=== PATIENT | male | born 1930 | race Caucasian/White ===

== ENCOUNTER 2018-12-15 15:45 | Emergency (ER) | payer MEDICARE, BC ==
--- NOTE | 2018-12-15 17:29 | EDM.PDOC ---
ED HPI GENERAL MEDICAL PROBLEM - General Chief Complaint: Respiratory Problem Stated Complaint: DOES NOT LIKE THE SIDE EFFECTS OF MEDS Time Seen by Provider: 12/15/18 16:29 Source of Information: Reports: Patient, RN Notes Reviewed History Limitations: Reports: No Limitations - History of Present Illness INITIAL COMMENTS - FREE TEXT/NARRATIVE: Patient is an 88-year-old male who comes to the ED for evaluation of some adverse side effects of medications that he was placed on. He states that he was recently diagnosed with pneumonia 2 or 3 days ago. He was subsequently placed on Levaquin 750 mg once daily. And DuoNeb nebulizers 4 times daily. He states that after he does the DuoNeb nebulizers that his chest feels as if it's on fire, he states this makes him feel worse than he did before he took the nebulizer. He said he had been taking them faithfully 4 times a day as directed for the last 3 days. However he said he did not take his nebulizer and he felt much better. He also states that he had some trouble initiating urination while on the DuoNeb nebulizers. He further characterizes a history of BPH for which he takes Flomax daily. Patient states he has a history of emphysema. He also notes that he was a former smoker. He says that he has a dry cough that has been present for many years. This cough has not changed in character, he denies any productive sputum or change in color of the sputum. He further denies any fevers or chills, shortness of breath or wheezing. He states that he is unsure whether or not he actually had a diagnosis of pneumonia as he got told to different things by 2 different providers. Once that he had bronchitis once that he had pneumonia. The gentleman has a complex medical history for which she sees many doctors for specific ailments. He does most of his doctoring with [place]. - Related Data Allergies Allergy/AdvReac Type Severity Reaction Status Date / Time cefdinir [From Omnicef] Allergy Cannot Verified 12/15/18 16:03 Remember propoxyphene HCl Allergy Seizure Verified 12/15/18 16:03 [From Darvon] Home Meds: Home Meds Aspirin [Ecotrin] 81 mg PO DAILY 05/15/15 [History] Metoprolol Succinate [Toprol XL] 25 mg PO DAILY 05/15/15 [History] Tamsulosin [Flomax] 0.4 mg PO DAILY 05/15/15 [History] atorvaSTATin [Lipitor] 10 mg PO DAILY 05/15/15 [History] Past Medical History HEENT History: Reports: Hard of Hearing, Impaired Vision Other HEENT History: wears glasses. wears hearing aids Cardiovascular History: Reports: High Cholesterol, Hypertension, [place] Neurological History: Reports: Head Trauma Oncologic (Cancer) History: Reports: Pancreatic, Other (See Below) Other Oncologic History: pancreatic cancerous tumor - Past Surgical History GI Surgical History: Reports: Colonoscopy Social & Family History - Tobacco Use Smoking Status *Q: Former Smoker Used Tobacco, but Quit: Yes Month/Year Tobacco Last Used: 1979 Second Hand Smoke Exposure: No - Caffeine Use Caffeine Use: Reports: None - Recreational Drug Use Recreational Drug Use: No ED ROS GENERAL - Review of Systems Review Of Systems: See Below Constitutional: Denies: Fever, Chills, Malaise, Weakness, Fatigue HEENT: Reports: No Symptoms Respiratory: Reports: Cough (chronic dry cough). Denies: Shortness of Breath, Wheezing, Sputum, Hemoptysis Cardiovascular: Reports: No Symptoms GI/Abdominal: Reports: No Symptoms : Reports: Dysuria (burning with urination, hard to initate stream), Urinary Retention (since the start of duoneb, it is hard to initiate urinary stream) Musculoskeletal: Reports: No Symptoms Skin: Reports: No Symptoms Neurological: Reports: No Symptoms Psychiatric: Reports: No Symptoms Hematologic/Lymphatic: Reports: No Symptoms Immunologic: Reports: No Symptoms ED EXAM, GENERAL - Physical Exam Exam: See Below Exam Limited By: No Limitations General Appearance: Alert, WD/WN, No Apparent Distress Eye Exam: Bilateral Eye: Normal Inspection Ears: Normal External Exam Nose: Normal Inspection Throat/Mouth: Normal Inspection, Normal Oropharynx, No Airway Compromise Head: Atraumatic, Normocephalic Neck: Normal Inspection Respiratory/Chest: No Respiratory Distress, Lungs Clear, Normal Breath Sounds, No Accessory Muscle Use, Chest Non-Tender Cardiovascular: Normal Peripheral Pulses, Regular Rate, Rhythm, No Murmur GI/Abdominal: Normal Bowel Sounds, Soft, Non-Tender, No Distention Extremities: Normal Inspection, Normal Capillary Refill Neurological: Alert, Oriented, Normal Cognition, No Motor/Sensory Deficits Psychiatric: Normal Affect, Normal Mood Skin Exam: Warm, Dry, Intact, Normal Color, No Rash Course - Vital Signs Last Recorded V/S: Last Vital Signs Temp 97.4 F 12/15/18 16:03 Pulse Resp BP Pulse Ox - Orders/Labs/Meds Labs: Laboratory Tests 12/15/18 12/15/18 12/15/18 Range/Units 17:15 17:36 17:36 WBC 5.39 (4.23-9.07) K/mm3 RBC 4.25 L (4.63-6.08) M/mm3 Hgb 12.7 L (13.7-17.5) gm/L Hct 37.3 L (40.1-51.0) % MCV 87.8 (79.0-92.2) fl MCH 29.9 (25.7-32.2) pg MCHC 34.0 (32.2-35.5) g/dl RDW Std Deviation 42.1 (35.1-43.9) fL Plt Count 152 L (163-337) K/mm3 MPV 10.8 (9.4-12.3) fl Neutrophils % (Manual) 74 H (40-60) % Band Neutrophils % 0 (0-10) % Lymphocytes % (Manual) 13 L (20-40) % Atypical Lymphs % 0 % Monocytes % (Manual) 9 (2-10) % Eosinophils % (Manual) 4 (0.8-7.0) % Basophils % (Manual) 0 L (0.2-1.2) Platelet Estimate Adequate RBC Morph Comment Normal Sodium 137 (136-145) mEq/L Potassium 4.0 (3.5-5.1) mEq/L Chloride 103 (98-107) mEq/L Carbon Dioxide 26 (21-32) mEq/L Anion Gap 12.0 (5-15) BUN 11 (7-18) mg/dL Creatinine 0.7 (0.7-1.3) mg/dL Est Cr Clr Drug Dosing 80.19 mL/min Estimated GFR (MDRD) > 60 (>60) mL/min BUN/Creatinine Ratio 15.7 (14-18) Glucose 87 (83-115) mg/dL Calcium 8.8 (8.5-10.1) mg/dL Total Bilirubin 0.5 (0.2-1.0) mg/dL AST 24 (15-37) U/L ALT 34 (16-63) U/L Alkaline Phosphatase 79 (46-116) U/L Total Protein 7.0 (6.4-8.2) g/dl Albumin 3.0 L (3.4-5.0) g/dl Globulin 4.0 gm/dL Albumin/Globulin Ratio 0.8 L (1-2) Urine Color Light yellow (Yellow) Urine Appearance Clear (Clear) Urine pH 6.5 (5.0-8.0) Ur Specific [place] 1.010 (1.005-1.030) Urine Protein Negative (Negative) Urine Glucose (UA) Negative (Negative) Urine Ketones Negative (Negative) Urine Occult Blood Trace-lysed H (Negative) Urine Nitrite Negative (Negative) Urine Bilirubin Negative (Negative) Urine Urobilinogen 0.2 (0.2-1.0) Ur Leukocyte Esterase Negative (Negative) Urine RBC 0-5 (0-5) /hpf Urine WBC 0-5 (0-5) /hpf Ur Epithelial Cells Not seen (0-5) /hpf Urine Bacteria Occasional (FEW) /hpf Urine Mucus Not seen (FEW) /hpf - Re-Assessments/Exams Free Text/Narrative Re-Assessment/Exam: 12/15/18 17:36 Patient presents to the ED for evaluation of adverse side effects of his medications previously prescribed. I'm questioning whether or not he actually had a pneumonia, as his O2 sats are 98-99 on room air. He is rather talkative in the room upon initial presentation. He has coughed only once while I was in the room, as well as dry in nature. His urinary retention is suspicious of the started DuoNeb. I told him to stop taking the DuoNeb as it can cause some urinary retention due to one of the medications in it. I did order CBC, CMP, and UA for initial evaluation because he said he did have some burning with urination. However he is on Levaquin already for the above above-mentioned pneumonia and this should cover him well for a UTI if one should be present. 12/15/18 18:34 Patient's labs are back and do not demonstrate any acute bacterial infection or metabolic derangement. His urine was clean for any infection as well. Will give general recommendations and discharge home. Departure - Departure Time of Disposition: 18:35 Disposition: Home, Self-Care 01 Condition: Fair Clinical Impression: Burning with urination - Discharge Information *PRESCRIPTION DRUG MONITORING PROGRAM REVIEWED*: No *COPY OF PRESCRIPTION DRUG MONITORING REPORT IN PATIENT MAGGIE: No Instructions: Dysuria Referrals: PCP,None [Primary Care Provider] - Forms: ED Department Discharge Additional Instructions: You have been evaluated in the ED for adverse reactions to medications that he had been taking. Please continue to take the antibiotic as prescribed. Please stop taking the DuoNeb nebulizers. There is a medication in this formulation that may attribute to your urinary retention/burning symptoms. This medicine would be the ipratropium in the DuoNeb nebulizers. Please return to the ED if your symptoms change or worsen.
== END 2018-12-15 18:53 | disposition home or self-care (01) ==
LOC: JD.ED 15:45
DX: R30.9 Painful micturition, unspecified (principal); I10 Essential (primary) hypertension; E78.00 Pure hypercholesterolemia, unspecified; Z87.891 Personal history of nicotine dependence; Z79.82 Long term (current) use of aspirin; Z79.899 Other long term (current) drug therapy; Z88.1 Allergy status to other antibiotic agents; Z88.8 Allergy status to other drugs, medicaments and biological substances
CPT/HCPCS: 36415; 80053; 81001; 85007; 85027; 99282; 99283

== ENCOUNTER 2019-09-24 10:03 | Inpatient (IN) | payer MEDICARE, BC ==
[2019-09-24] MEDS ORDERED: Sodium Chloride 0.9% 10 ML Syringe FLUSH PRN (10:59)
[2019-09-24] MEDS ORDERED: HYDROmorphone 0.5 MG/0.5 ML Syringe IVPUSH ONE (12:02)
[2019-09-24] MEDS ORDERED: Diltiazem 50 MG/10 ML SDV IVPUSH ONE (12:12)
[2019-09-24] MEDS ORDERED: Diltiazem 125 MG in Sodium Chloride 0.9% 100 ML IV SCH (12:15)
--- NOTE | 2019-09-24 12:16 | CT ---
Head CT Technique: Multiple axial sections through the brain were obtained. Intravenous contrast was not utilized. Comparison: Prior head CT study of 08/08/13. Findings: Ventricles along with basal cisterns and sulci over the convexities are moderately prominent. Diminished density is noted within the periventricular white matter compatible with small vessel ischemic demyelination change. Several old lacunar infarcts are noted within the basal ganglia. No evidence of intracranial hemorrhage. No midline shift or mass effect is seen. Atherosclerotic calcification is seen within the carotid siphon. Mastoid sinuses are clear. Nothing acute is seen within the visualized paranasal sinuses. Previous julianna hole is noted within the right calvarium. Impression: 1. Senescent change as noted above. Previous julianna hole. 2. No acute intracranial abnormality is appreciated. Diagnostic code #2 This report was dictated in [place] Standard Time
[2019-09-24] MEDS ORDERED: predniSONE 20 MG Tab PO ONE (13:10)
--- NOTE | 2019-09-24 13:28 | EDM.PDOC ---
ED HPI GENERAL MEDICAL PROBLEM - General Chief Complaint: General Stated Complaint: LEG PAIN AND HEAD PAIN Time Seen by Provider: 09/24/19 10:49 Source of Information: Reports: Patient, Family History Limitations: Reports: No Limitations - History of Present Illness INITIAL COMMENTS - FREE TEXT/NARRATIVE: The patient presents with a headache, neck pain, and bilateral leg pain. He has been dealing with this for over a week. He went to the walk in clinic the other day and they did some labs and they looked good. He had x-rays done and it was felt that he may need to see an orthopedic surgeon. He went to see his chiropractor and he recommended he come to be seen. He says the headache is in the back of his head and it hurts to touch him there. He also has some neck and shoulder pain. He has bilateral leg pain. He has no fever, chills, cough, chest pain, nausea or vomiting. He has been taking some ibuprofen at times and that does help. He was prescribed 800mg motrin by his provider. He is very active and swims at the [facility] a few times per week. He has not been able to do that because of the pain and he cannot sleep at night. He does have some upper abdominal pain at times. Onset: Gradual Duration: Week(s): Location: Reports: Head, Neck, Lower Extremity, Left, Lower Extremity, Right Quality: Reports: Ache, Sharp Severity: Moderate Improves with: Reports: Immobilization Worsens with: Reports: Movement Context: Denies: Trauma Associated Symptoms: Reports: Headaches. Denies: Chest Pain, Cough, Fever/ Chills, Nausea/Vomiting, Shortness of Breath Head Pain Score (Numeric/FACES): 8 - Related Data Allergies Allergy/AdvReac Type Severity Reaction Status Date / Time cefdinir [From Omnicef] Allergy Cannot Verified 09/24/19 11:18 Remember propoxyphene HCl AdvReac Seizure Verified 09/24/19 12:22 [From Darvon] Home Meds: Home Meds Aspirin [Ecotrin EC] 81 mg PO DAILY 05/15/15 [History] Metoprolol Succinate [Toprol XL] 25 mg PO DAILY 05/15/15 [History] Tamsulosin [Flomax] 0.4 mg PO DAILY 05/15/15 [History] atorvaSTATin [Lipitor] 10 mg PO DAILY 05/15/15 [History] Past Medical History HEENT History: Reports: Hard of Hearing, Impaired Vision Other HEENT History: wears glasses. wears hearing aids Cardiovascular History: Reports: High Cholesterol, Hypertension, [place] Neurological History: Reports: Head Trauma Oncologic (Cancer) History: Reports: Pancreatic, Other (See Below) Other Oncologic History: pancreatic cancerous tumor - Past Surgical History GI Surgical History: Reports: Colonoscopy Social & Family History - Tobacco Use Smoking Status *Q: Never Smoker Second Hand Smoke Exposure: No - Caffeine Use Caffeine Use: Reports: None - Recreational Drug Use Recreational Drug Use: No ED ROS GENERAL - Review of Systems Review Of Systems: See Below Constitutional: Reports: No Symptoms HEENT: Reports: No Symptoms Respiratory: Reports: No Symptoms Cardiovascular: Reports: No Symptoms Endocrine: Reports: No Symptoms GI/Abdominal: Reports: Abdominal Pain. Denies: Nausea, Vomiting : Reports: No Symptoms Musculoskeletal: Reports: Neck Pain, Leg Pain ED EXAM, GENERAL - Physical Exam Exam: See Below Exam Limited By: No Limitations General Appearance: Alert, No Apparent Distress Ears: Normal External Exam Nose: Normal Inspection Head: Atraumatic, Normocephalic Neck: Normal Inspection, Supple, Tender Lateral, Tender Midline Respiratory/Chest: No Respiratory Distress, Lungs Clear, Normal Breath Sounds Cardiovascular: Regular Rate, Rhythm, No Edema, No Murmur GI/Abdominal: Soft, No Organomegaly, No Mass, Tender (Mild tenderness to the upper abdomen) Back Exam: Normal Inspection Extremities: Other (Mild pain upon palpation to both thighs) Neurological: Alert, Oriented, No Motor/Sensory Deficits EKG INTERPRETATION EKG Date: 09/24/19 Time: 12:12 Rhythm: A-Fib Rate (Beats/Min): 154 [place]: Normal P-Wave: Absent QRS: Normal ST-T: Normal QT: Normal Course - Vital Signs Last Recorded V/S: Last Vital Signs Temp 98.0 F 09/24/19 10:48 Pulse 86 09/24/19 10:48 Resp 20 09/24/19 10:48 BP 112/91 H 09/24/19 10:48 Pulse Ox 97 09/24/19 10:48 - Orders/Labs/Meds Orders: Active Orders 24 hr Category Date Time Status Cardiac Monitoring [RC] . DIRECTED Care 09/24/19 10:59 Active EKG Documentation Completion [RC] ASDIRECTED Care 09/24/19 12:10 Active Peripheral IV Care [RC] . DIRECTED Care 09/24/19 11:00 Active TATIANA W/REFLEX [REF] Stat Lab 09/24/19 11:35 Received FOLIC ACID [CHEM] Stat Lab 09/24/19 14:21 Ordered VITAMIN B12 [CHEM] Stat Lab 09/24/19 11:25 Received Diltiazem 125 mg Med 09/24/19 12:15 Active Sodium Chloride 0.9% [Normal Saline] 100 ml IV TITRATE Sodium Chloride 0.9% [Saline Flush] Med 09/24/19 10:59 Active 10 ml FLUSH ASDIRECTED PRN Peripheral IV Insertion Adult [OM.PC] Stat Oth 09/24/19 10:59 Ordered EKG 12 Lead [EK] Stat Ther 09/24/19 12:10 Ordered Medication Orders Diltiazem HCl 125 mg/ Sodium (Chloride) 125 mls @ 10 mls/hr IV TITRATE GLENN; Protocol Last Admin: 09/24/19 12:36 Dose: 10 mg/hr, 10 mls/hr Sodium Chloride (Saline Flush) 10 ml FLUSH ASDIRECTED PRN PRN Reason: Keep Vein Open Last Admin: 09/24/19 11:31 Dose: 10 ml Labs: Laboratory Tests 09/24/19 09/24/19 09/24/19 Range/Units 11:25 11:25 11:25 WBC 7.16 (4.23-9.07) K/mm3 RBC 3.98 L (4.63-6.08) M/mm3 Hgb 11.7 L (13.7-17.5) gm/dl Hct 34.2 L (40.1-51.0) % MCV 85.9 (79.0-92.2) fl MCH 29.4 (25.7-32.2) pg MCHC 34.2 (32.2-35.5) g/dl RDW Std Deviation 38.0 (35.1-43.9) fL Plt Count 214 (163-337) K/mm3 MPV 10.6 (9.4-12.3) fl Neut % (Auto) 74.0 H (34.0-67.9) % Lymph % (Auto) 9.2 L (21.8-53.1) % [place] % (Auto) 16.2 H (5.3-12.2) % Eos % (Auto) 0.4 L (0.8-7.0) Baso % (Auto) 0.1 (0.1-1.2) % Neut # (Auto) 5.29 (1.78-5.38) K/mm3 Lymph # (Auto) 0.66 L (1.32-3.57) K/mm3 [place] # (Auto) 1.16 H (0.30-0.82) K/mm3 Eos # (Auto) 0.03 L (0.04-0.54) K/mm3 Baso # (Auto) 0.01 (0.01-0.08) K/mm3 Manual Slide Review Abnormal smear ESR 68 H (0-15) mm/hr Percent Retic (0.51-1.81) % Sodium 126 L D (136-145) mEq/L Potassium 4.3 (3.5-5.1) mEq/L Chloride 96 L (98-107) mEq/L Carbon Dioxide 23 (21-32) mEq/L Anion Gap 11.3 (5-15) BUN 14 (7-18) mg/dL Creatinine 0.7 (0.7-1.3) mg/dL Est Cr Clr Drug Dosing 80.19 mL/min Estimated GFR (MDRD) > 60 (>60) mL/min BUN/Creatinine Ratio 20.0 H (14-18) Glucose 117 H (83-115) mg/dL Calcium 8.7 (8.5-10.1) mg/dL Iron (65-175) ug/dL TIBC (100-400) ug/dL % Saturation (20-55) % Transferrin (202-364) mg/dL Total Bilirubin 0.9 (0.2-1.0) mg/dL AST 49 H (15-37) U/L ALT 85 H (16-63) U/L Alkaline Phosphatase 75 (46-116) U/L Creatine Kinase 66 (39-308) U/L Troponin I (0.00-0.056) ng/mL C-Reactive Protein 18.2 H* (<1.0) mg/dL Total Protein 6.7 (6.4-8.2) g/dl Albumin 2.5 L (3.4-5.0) g/dl Globulin 4.2 gm/dL Albumin/Globulin Ratio 0.6 L (1-2) Lipase 58 L (73-393) U/L TSH 3rd Generation (0.358-3.74) uIU/mL Rheumatoid Factor Scrn (NEGATIVE) 09/24/19 09/24/19 09/24/19 Range/Units 11:25 11:25 11:25 WBC (4.23-9.07) K/mm3 RBC (4.63-6.08) M/mm3 Hgb (13.7-17.5) gm/dl Hct (40.1-51.0) % MCV (79.0-92.2) fl MCH (25.7-32.2) pg MCHC (32.2-35.5) g/dl RDW Std Deviation (35.1-43.9) fL Plt Count (163-337) K/mm3 MPV (9.4-12.3) fl Neut % (Auto) (34.0-67.9) % Lymph % (Auto) (21.8-53.1) % [place] % (Auto) (5.3-12.2) % Eos % (Auto) (0.8-7.0) Baso % (Auto) (0.1-1.2) % Neut # (Auto) (1.78-5.38) K/mm3 Lymph # (Auto) (1.32-3.57) K/mm3 [place] # (Auto) (0.30-0.82) K/mm3 Eos # (Auto) (0.04-0.54) K/mm3 Baso # (Auto) (0.01-0.08) K/mm3 Manual Slide Review ESR (0-15) mm/hr Percent Retic (0.51-1.81) % Sodium (136-145) mEq/L Potassium (3.5-5.1) mEq/L Chloride (98-107) mEq/L Carbon Dioxide (21-32) mEq/L Anion Gap (5-15) BUN (7-18) mg/dL Creatinine (0.7-1.3) mg/dL Est Cr Clr Drug Dosing mL/min Estimated GFR (MDRD) (>60) mL/min BUN/Creatinine Ratio (14-18) Glucose (83-115) mg/dL Calcium (8.5-10.1) mg/dL Iron 16 L (65-175) ug/dL TIBC 180 (100-400) ug/dL % Saturation 9 L (20-55) % Transferrin 144 L (202-364) mg/dL Total Bilirubin (0.2-1.0) mg/dL AST (15-37) U/L ALT (16-63) U/L Alkaline Phosphatase (46-116) U/L Creatine Kinase (39-308) U/L Troponin I < 0.017 (0.00-0.056) ng/mL C-Reactive Protein (<1.0) mg/dL Total Protein (6.4-8.2) g/dl Albumin (3.4-5.0) g/dl Globulin gm/dL Albumin/Globulin Ratio (1-2) Lipase (73-393) U/L TSH 3rd Generation 1.548 (0.358-3.74) uIU/mL Rheumatoid Factor Scrn Negative (NEGATIVE) 09/24/19 Range/Units 11:35 WBC (4.23-9.07) K/mm3 RBC (4.63-6.08) M/mm3 Hgb (13.7-17.5) gm/dl Hct (40.1-51.0) % MCV (79.0-92.2) fl MCH (25.7-32.2) pg MCHC (32.2-35.5) g/dl RDW Std Deviation (35.1-43.9) fL Plt Count (163-337) K/mm3 MPV (9.4-12.3) fl Neut % (Auto) (34.0-67.9) % Lymph % (Auto) (21.8-53.1) % [place] % (Auto) (5.3-12.2) % Eos % (Auto) (0.8-7.0) Baso % (Auto) (0.1-1.2) % Neut # (Auto) (1.78-5.38) K/mm3 Lymph # (Auto) (1.32-3.57) K/mm3 [place] # (Auto) (0.30-0.82) K/mm3 Eos # (Auto) (0.04-0.54) K/mm3 Baso # (Auto) (0.01-0.08) K/mm3 Manual Slide Review ESR (0-15) mm/hr Percent Retic 0.66 (0.51-1.81) % Sodium (136-145) mEq/L Potassium (3.5-5.1) mEq/L Chloride (98-107) mEq/L Carbon Dioxide (21-32) mEq/L Anion Gap (5-15) BUN (7-18) mg/dL Creatinine (0.7-1.3) mg/dL Est Cr Clr Drug Dosing mL/min Estimated GFR (MDRD) (>60) mL/min BUN/Creatinine Ratio (14-18) Glucose (83-115) mg/dL Calcium (8.5-10.1) mg/dL Iron (65-175) ug/dL TIBC (100-400) ug/dL % Saturation (20-55) % Transferrin (202-364) mg/dL Total Bilirubin (0.2-1.0) mg/dL AST (15-37) U/L ALT (16-63) U/L Alkaline Phosphatase (46-116) U/L Creatine Kinase (39-308) U/L Troponin I (0.00-0.056) ng/mL C-Reactive Protein (<1.0) mg/dL Total Protein (6.4-8.2) g/dl Albumin (3.4-5.0) g/dl Globulin gm/dL Albumin/Globulin Ratio (1-2) Lipase (73-393) U/L TSH 3rd Generation (0.358-3.74) uIU/mL Rheumatoid Factor Scrn (NEGATIVE) Meds: Medications Generic Name Dose Route Start Last Admin Trade Name Freq PRN Reason Stop Dose Admin Diltiazem HCl 125 mg/ Sodium 125 mls @ 10 mls/hr 09/24/19 12:15 09/24/19 12: 36 Chloride IV 10 mg/hr TITRATE GLENN 10 mls/hr Administration Protocol 10 MG/HR Sodium Chloride 10 ml 09/24/19 10:59 09/24/19 11:31 Saline Flush FLUSH 10 ml ASDIRECTED PRN Administration Keep Vein Open Discontinued Medications Generic Name Dose Route Start Last Admin Trade Name Freq PRN Reason Stop Dose Admin Diltiazem HCl 10 mg 09/24/19 12:12 09/24/19 12:22 Cardizem IVPUSH 09/24/19 12:13 10 mg ONETIME ONE Administration Hydromorphone HCl 0.5 mg 09/24/19 12:02 09/24/19 12:08 Dilaudid IVPUSH 09/24/19 12:03 0.5 mg ONETIME ONE Administration Prednisone 20 mg 09/24/19 13:10 09/24/19 13:58 Prednisone PO 09/24/19 13:11 20 mg ONETIME ONE Administration - Re-Assessments/Exams Free Text/Narrative Re-Assessment/Exam: 09/24/19 13:32 I ordered an IV saline lock, CT of his head, and labs. I later ordered some dilaudid 0.5mg IV. His CT shows senescent change. Previous julianna hole. No acute intracranial abnormality is appreciated. His Hgb was a little low at 11.7. His ESR was elevated at 68. His CRP was elevated at 18.2. His Na was low at 126. His iron is low at 16. His troponin is negative. His lipase is normal. His TSH is normal. I ordered some dilaudid for the pain and after that he went into A-fib with RVR. His heart rate went into the 150s. According to his son and him he has a history of A-fib. I cannot fine one in the chart. I ordered a cardizem bolus of 10mg IV and a drip at 10mg IV. I feel he has A-fib with RVR and he also has polymyalgia rheumatica. His ESR and CRP are both elevated. I have ordered prednisone 20mg by mouth. I feel he needs to be admitted. I called Dr Guerrero and she agreed to the admission. Departure - Departure Time of Disposition: 14:35 Disposition: Admitted As Inpatient 68 Condition: Fair Clinical Impression: Paroxysmal atrial fibrillation with RVR, Hyponatremia, Polymyalgia rheumatica syndrome - Discharge Information Referrals: PCP,Not In Area [Primary Care Provider] - Forms: ED Department Discharge - My Orders Last 24 Hours: My Active Orders 09/24/19 10:59 Cardiac Monitoring [RC] . DIRECTED Sodium Chloride 0.9% [Saline Flush] 10 ml FLUSH ASDIRECTED PRN Peripheral IV Insertion Adult [OM.PC] Stat 09/24/19 11:00 Peripheral IV Care [RC] . DIRECTED 09/24/19 11:25 VITAMIN B12 [CHEM] Stat 09/24/19 11:35 TATIANA W/REFLEX [REF] Stat 09/24/19 12:10 EKG Documentation Completion [RC] ASDIRECTED EKG 12 Lead [EK] Stat 09/24/19 12:15 Diltiazem 125 mg Sodium Chloride 0.9% [Normal Saline] 100 ml IV TITRATE 09/24/19 14:21 FOLIC ACID [CHEM] Stat - Assessment/Plan Last 24 Hours: My Active Orders 09/24/19 10:59 Cardiac Monitoring [RC] . DIRECTED Sodium Chloride 0.9% [Saline Flush] 10 ml FLUSH ASDIRECTED PRN Peripheral IV Insertion Adult [OM.PC] Stat 09/24/19 11:00 Peripheral IV Care [RC] . DIRECTED 09/24/19 11:25 VITAMIN B12 [CHEM] Stat 09/24/19 11:35 TATIANA W/REFLEX [REF] Stat 09/24/19 12:10 EKG Documentation Completion [RC] ASDIRECTED EKG 12 Lead [EK] Stat 09/24/19 12:15 Diltiazem 125 mg Sodium Chloride 0.9% [Normal Saline] 100 ml IV TITRATE 09/24/19 14:21 FOLIC ACID [CHEM] Stat
[2019-09-24] MEDS ORDERED: Diltiazem 50 MG/10 ML SDV IVPUSH STA (14:17)
[2019-09-24] MEDS ORDERED: Ondansetron 4 MG Tab.DIS PO PRN (14:18)
[2019-09-24] MEDS ORDERED: Ondansetron 4 MG/2 ML SDV IV PRN (14:18)
--- NOTE | 2019-09-24 14:30 | PCM.HP.2 ---
H&P History of Present Illness - General Date of Service: 09/24/19 Admit Problem/Dx: Admission Diagnosis/Problem Admission Diagnosis/Problem Atrial fibrillation with rapid ventricular response - History of Present Illness Initial Comments - Free Text/Narative: Lizzette lal a88 year old male who comes to the ED complaining of pain. As per patient pain started a couple of weeks ago on his neck and has progressively worsened and involved head and knees. He went to the walk-in clinic and was given ibuprofen. The pain has steadily worsened to the point he is unable to sleep for which he decided to come in for further evaluation. Once in the ED he was found to have a HR > 140 for which he was given Diltiazem for rate control and started on a Diltiazem drip. Head Pain Score (Numeric/FACES): 8 - Related Data Allergies/Adverse Reactions: Allergies Allergy/AdvReac Type Severity Reaction Status Date / Time cefdinir [From Omnicef] Allergy Cannot Verified 09/24/19 11:18 Remember propoxyphene HCl AdvReac Seizure Verified 09/24/19 12:22 [From Darvon] Home Medications: Home Meds Aspirin [Ecotrin EC] 81 mg PO DAILY 05/15/15 [History] Tamsulosin [Flomax] 0.4 mg PO DAILY 05/15/15 [History] atorvaSTATin [Lipitor] 10 mg PO DAILY 05/15/15 [History] Diltiazem HCl [Diltiazem 12Hr ER] 120 mg PO DAILY 09/24/19 [History] Nitroglycerin [Nitrostat] 0.4 mg SL ONETIME PRN 09/24/19 [History] Past Medical History HEENT History: Reports: Hard of Hearing, Impaired Vision Other HEENT History: wears glasses. wears hearing aids Cardiovascular History: Reports: High Cholesterol, Hypertension, [place] Neurological History: Reports: Head Trauma Oncologic (Cancer) History: Reports: Pancreatic, Other (See Below) Other Oncologic History: pancreatic cancerous tumor - Past Surgical History GI Surgical History: Reports: Colonoscopy Social & Family History - Tobacco Use Smoking Status *Q: Never Smoker Second Hand Smoke Exposure: No - Caffeine Use Caffeine Use: Reports: None - Recreational Drug Use Recreational Drug Use: No H&P Review of Systems - Review of Systems: Review Of Systems: See Below General: Denies: Fever, Chills, Malaise, Weakness, Fatigue, Night Sweats, Diaphoresis, Decreased Appetite, Weight Loss HEENT: Reports: Headaches, Hearing Changes. Denies: Contact Lenses, Dysphasia, Ear Pain, Eye Pain, Glasses, Rhinitis, Post Nasal Drip, Sinus Congestion, Sore Throat, Vertigo, Visual Changes Pulmonary: Denies: Shortness of Breath, Wheezing, Pleuritic Chest Pain, Cough, Sputum, Hemoptysis Cardiovascular: Denies: Chest Pain, Palpitations, Dyspnea on Exertion, Orthopnea , PND, Edema, Lightheadedness, Syncope, Claudication Gastrointestinal: Denies: Abdominal Pain, Anorexia, Black Stool, Bloody Stool, Constipation, Diarrhea, Distension, Flatus, Nausea, Stool Incontinence, Vomiting Genitourinary: Denies: Dysuria, Frequency, Burning, Pain, Urgency Musculoskeletal: Reports: Neck Pain, Joint Pain. Denies: Joint Swelling, Muscle Pain, Muscle Stiffness Skin: Denies: Cyanosis, Jaundice, Mottled, Pallor Psychiatric: Denies: Confusion, Depression, Mood Lability Neurological: Reports: Headache. Denies: Confusion, Dizziness Exam - Exam Exam: See Below - Vital Signs Vital Signs: Last Vital Signs Temp 98.0 F 09/24/19 10:48 Pulse 86 09/24/19 10:48 Resp 20 09/24/19 10:48 BP 112/91 H 09/24/19 10:48 Pulse Ox 97 09/24/19 10:48 Weight: 74.843 kg - Exam Quality Assessment: No: Supplemental Oxygen, Central Line/PICC, Urinary Catheter , DVT Prophylaxis, Skin Breakdown General: Alert, Oriented, Cooperative, Moderate Distress HEENT: Conjunctiva Clear, EACs Clear, EOMI, Posterior Pharynx Clear. No: Hearing Intact Neck: Supple, Trachea Midline, +2 Carotid Pulse wo Bruit, Full Range of Motion. No: Lymphadenopathy Lungs: Clear to Auscultation, Normal Respiratory Effort. No: Crackles, Rales, Rhonchi, Rub, Stridor, Wheezing Cardiovascular: Irregular Rhythm, Tachycardia. No: Systolic Murmur, Diastolic Murmur, Rubs, Gallop/S3, Gallop/S4 GI/Abdominal Exam: Normal Bowel Sounds, Soft, Non-Tender, No Organomegaly. No: Guarding, Rigid, Rebound Back Exam: Normal Inspection. No: CVA Tenderness (L), CVA Tenderness (R) Extremities: Normal Inspection, Non-Tender, No Pedal Edema, Normal Capillary Refill - Patient Data Result Diagrams: 09/25/19 05:05 09/25/19 05:05 - Problem List (1) Hyponatremia SNOMED Code(s): 07289584 ICD Code: E87.1 - HYPO-OSMOLALITY AND HYPONATREMIA Status: Acute Current Visit: Yes (2) Paroxysmal atrial fibrillation with RVR SNOMED Code(s): 910157657, 772757969538631 ICD Code: I48.0 - PAROXYSMAL ATRIAL FIBRILLATION Status: Acute Current Visit: Yes (3) Pancreatic mass SNOMED Code(s): 413168091 ICD Code: K86.9 - DISEASE OF PANCREAS, UNSPECIFIED Status: Acute Current Visit: No (4) Hypochloremia SNOMED Code(s): 14043210 ICD Code: E87.8 - OTH DISORDERS OF ELECTROLYTE AND FLUID BALANCE, NEC Status: Acute Current Visit: Yes (5) Normocytic normochromic anemia SNOMED Code(s): 79380252 ICD Code: D64.9 - ANEMIA, UNSPECIFIED Status: Acute Current Visit: Yes (6) ESR raised SNOMED Code(s): 277972307 ICD Code: R70.0 - ELEVATED ERYTHROCYTE SEDIMENTATION RATE Status: Acute Current Visit: Yes (7) Joint pain SNOMED Code(s): 02177894 ICD Code: M25.50 - PAIN IN UNSPECIFIED JOINT Status: Acute Current Visit : Yes Problem List Initiated/Reviewed/Updated: Yes Assessment/Plan Comment:: Paroxysmal atrial fibrillation with RVR Previous episodes reported by son Completely asymptomatic Given Diltiazem bolus and started on Drip in ED Still in and out of a fib Unable to perform STOP Bang PLAN - Diltiazem drip, taper by rate control - Give 2nd bolus of Diltiazem 0.35mg/kg - Telemetry - TSH - Trend overnight oxygenation - Echocardiogram - Anticoagulation once echocardiogram results are available Polyarticular pain + ESR raised No trauma No obvious deformities Attempted ibuprofen at home with minimal improvement Unlikely to be autoimmune condition but will order w/u to r/o PLAN - TATIANA - Aspercreme as needed - Pain control - PT/OT Normocytic normochromic anemia No signs of blood loss No previous screening No red flags (weight loss, fatigue, earluy satiety) PLAN - Iron panel - PBS - Vitamin B12 and folic acid level Pancreatic mass Equivocal history of diagnosis in 2015 Son states it it cancer, however this does not match the natural history of pancreatic cancer PLAN - Request records PROPHYLAXIS DVT- SCDs GI- not indicated CODE STATUS: FULL CODE DISPOSITION: Patient will be admitted to the ICU for Diltiazem drip and taper with transition to PO diltiazem depending on required rate of infusion. PT/OT evaluation requested, CM ans SW aware of case.
[2019-09-24] MEDS: Morphine 2 MG/ML Syringe IVPUSH PRN ×2 (16:56→19:46)
[2019-09-24] MEDS: Diltiazem 300 MG Cap.CD PO SCH (20:14)
[2019-09-25] MEDS: Diltiazem 300 MG Cap.CD PO SCH (09:42)
[2019-09-25] MEDS ORDERED: Lidocaine 4% 1 each Patch TOP PRN (09:44)
[2019-09-25] MEDS ORDERED: Acetaminophen 325 MG Tab PO PRN (09:48)
--- NOTE | 2019-09-25 15:59 | PCM.PN ---
- General Info Date of Service: 09/25/19 Subjective Update: Slept ok Tolerating diet Ambulating with assistance - Patient Data Vitals - Most Recent: Last Vital Signs Temp 97.8 F 09/25/19 11:54 Pulse 62 09/25/19 01:00 Resp 16 09/25/19 11:54 BP 115/59 L 09/25/19 11:54 Pulse Ox 99 09/25/19 11:54 Weight - Most Recent: 74.843 kg - Exam Quality Assessment: No: Supplemental Oxygen, Central Line/PICC, Skin Breakdown General: Alert, Oriented, Cooperative, No Acute Distress HEENT: Pupils Equal, Pupils Reactive, Mucous Membr. Moist/[place] Neck: Supple, Trachea Midline, No JVD, No Thyromegaly Lungs: Clear to Auscultation. No: Crackles, Rales, Rhonchi, Rub, Stridor, Wheezing Cardiovascular: Regular Rate, Regular Rhythm. No: Murmurs, Gallops, Rubs GI/Abdominal Exam: Normal Bowel Sounds, Soft, Non-Tender, No Organomegaly, No Distention, No Abnormal Bruit Back Exam: Normal Inspection. No: CVA Tenderness (L), CVA Tenderness (R) Extremities: Normal Inspection, Normal Range of Motion, No Pedal Edema, Normal Capillary Refill Neurological: No New Focal Deficit Psy/Mental Status: Alert, Normal Affect, Normal Mood - Problem List & Annotations (1) Hyponatremia SNOMED Code(s): 81449851 Code(s): E87.1 - HYPO-OSMOLALITY AND HYPONATREMIA Status: Acute Current Visit: Yes (2) Paroxysmal atrial fibrillation with RVR SNOMED Code(s): 982216699, [id number] Code(s): I48.0 - PAROXYSMAL ATRIAL FIBRILLATION Status: Acute Current Visit: Yes (3) Pancreatic mass SNOMED Code(s): 014962012 Code(s): K86.9 - DISEASE OF PANCREAS, UNSPECIFIED Status: Acute Current Visit: No (4) Hypochloremia SNOMED Code(s): 10248731 Code(s): E87.8 - OTH DISORDERS OF ELECTROLYTE AND FLUID BALANCE, NEC Status : Acute Current Visit: Yes (5) Normocytic normochromic anemia SNOMED Code(s): 44538432 Code(s): D64.9 - ANEMIA, UNSPECIFIED Status: Acute Current Visit: Yes (6) ESR raised SNOMED Code(s): 197864134 Code(s): R70.0 - ELEVATED ERYTHROCYTE SEDIMENTATION RATE Status: Acute Current Visit: Yes (7) Joint pain SNOMED Code(s): 20361741 Code(s): M25.50 - PAIN IN UNSPECIFIED JOINT Status: Acute Current Visit: Yes - Problem List Review Problem List Initiated/Reviewed/Updated: Yes - Plan Plan:: Paroxysmal atrial fibrillation with RVR Previous episodes reported by son Completely asymptomatic Given Diltiazem bolus and started on Drip in ED--> Drip discontinued at 8PM TSH normal O2 trend 90-100% PLAN - Diltiazem PO 240mg QD - Telemetry - Echocardiogram - Anticoagulation once echocardiogram results are available Polyarticular pain + ESR raised No trauma No obvious deformities Attempted ibuprofen at home with minimal improvement Unlikely to be autoimmune condition but will order w/u to r/o ASked for too much morphine overnight PLAN - TATIANA - Aspercreme as needed - Dicontinue morphine, only Tylenol #3 - PT/OT Iron deficiency anemia No signs of blood loss No previous screening No red flags (weight loss, fatigue, early satiety) PLAN - Iron replacement q48h Pancreatic mass Equivocal history of diagnosis in 2015 Son states it it cancer, however this does not match the natural history of pancreatic cancer PLAN - Request records PROPHYLAXIS DVT- SCDs GI- not indicated CODE STATUS: FULL CODE DISPOSITION: Patient will be admitted to the ICU for Diltiazem drip, discontinued; started on PO Diltiazem last night. PT/OT evaluation requested, CM ans SW aware of case.
[2019-09-25] MEDS: Ferrous Sulfate 324 MG Tab.EC PO SCH (16:43)
[2019-09-26] MEDS ORDERED: Diltiazem 50 MG/10 ML SDV IVPUSH ONE ×2 (02:50→05:13)
[2019-09-26] MEDS ORDERED: Morphine 2 MG/ML Syringe IVPUSH ONE (05:13)
--- NOTE | 2019-09-26 08:54 | PCM.PN ---
- General Info Date of Service: 09/26/19 Admission Dx/Problem (Free Text): Admission Diagnosis/Problem Admission Diagnosis/Problem Atrial fibrillation with rapid ventricular response Subjective Update: Reports he feels much better this afternoon with better HR control. Denies any current pain or concerns HR now in 90-100's on amiodarone drip Functional Status: Reports: Pain Controlled, Tolerating Diet, Ambulating, Urinating. Denies: New Symptoms - Review of Systems General: Reports: No Symptoms. Denies: Fever, Weakness, Fatigue, Malaise HEENT: Reports: No Symptoms. Denies: Headaches, Sore Throat Pulmonary: Reports: No Symptoms. Denies: Shortness of Breath, Cough, Sputum, Wheezing Cardiovascular: Reports: No Symptoms. Denies: Chest Pain, Palpitations, Edema Gastrointestinal: Reports: No Symptoms. Denies: Abdominal Pain, Constipation, Diarrhea, Nausea, Vomiting Genitourinary: Reports: No Symptoms. Denies: Pain Musculoskeletal: Reports: No Symptoms Skin: Reports: No Symptoms. Denies: Cyanosis Neurological: Reports: No Symptoms. Denies: Confusion Psychiatric: Reports: No Symptoms - Patient Data Vitals - Most Recent: Last Vital Signs Temp 98.2 F 09/26/19 03:10 Pulse 64 09/26/19 03:10 Resp 18 09/26/19 03:10 BP 112/80 09/26/19 03:10 Pulse Ox 96 09/26/19 03:10 Weight - Most Recent: 164 lb I&O - Last 24 Hours: Intake & Output 09/25/19 09/26/19 09/26/19 22:59 06:59 14:59 Intake Total 1160 400 Output Total 300 2 Balance 860 398 Med Orders - Current: Current Medications Acetaminophen (Tylenol) 650 mg PO Q4H PRN PRN Reason: Pain Diltiazem HCl (Cardizem Cd) 300 mg PO DAILY GLENN Last Admin: 09/25/19 09:42 Dose: Not Given Ferrous Sulfate (Ferrous Sulfate) 324 mg PO Q48H GLENN Last Admin: 09/25/19 16:43 Dose: 324 mg Lidocaine (Aspercreme 4%) 1 each TOP DAILY PRN PRN Reason: Pain Last Admin: 09/25/19 11:18 Dose: 1 each Miscellaneous Information (Remove Patch) 0 ea TRDERM Q24H PRN PRN Reason: PAIN PATCH REMOVAL Ondansetron HCl (Zofran Odt) 4 mg PO Q6H PRN PRN Reason: nausea, able to take PO Ondansetron HCl (Zofran) 4 mg IV Q6H PRN PRN Reason: Nausea/Vomiting Senna/Docusate Sodium (Senna Plus) 1 tab PO BID PRN PRN Reason: Constipation Sodium Chloride (Saline Flush) 10 ml FLUSH ASDIRECTED PRN PRN Reason: Keep Vein Open Last Admin: 09/24/19 11:31 Dose: 10 ml Sulindac (Clinoril) 150 mg PO BID@0800,1700 [facility] Last Admin: 09/25/19 16:43 Dose: 150 mg Discontinued Medications Diltiazem HCl (Cardizem) 10 mg IVPUSH ONETIME ONE Stop: 09/24/19 12:13 Last Admin: 09/24/19 12:22 Dose: 10 mg Diltiazem HCl (Cardizem) 25 mg IVPUSH NOW STA Stop: 09/24/19 14:18 Last Admin: 09/24/19 14:47 Dose: 25 mg Diltiazem HCl (Cardizem) 25.7 mg IVPUSH ONETIME ONE Stop: 09/26/19 02:51 Last Admin: 09/26/19 03:08 Dose: 25.7 mg Diltiazem HCl (Cardizem) 25.7 mg IVPUSH ONETIME ONE Stop: 09/26/19 05:14 Last Admin: 09/26/19 05:22 Dose: 25.7 mg Hydromorphone HCl (Dilaudid) 0.5 mg IVPUSH ONETIME ONE Stop: 09/24/19 12:03 Last Admin: 09/24/19 12:08 Dose: 0.5 mg Diltiazem HCl 125 mg/ Sodium (Chloride) 125 mls @ 10 mls/hr IV TITRATE [facility]; Protocol Last Titration: 09/24/19 20:07 Dose: 0 mg/hr, 0 mls/hr Morphine Sulfate (Morphine) 2 mg IVPUSH Q4H PRN PRN Reason: Pain (severe 7-10) Stop: 09/25/19 14:22 Last Admin: 09/24/19 19:46 Dose: 2 mg Morphine Sulfate (Morphine) 1 mg IVPUSH ONETIME ONE Stop: 09/26/19 05:14 Last Admin: 09/26/19 05:23 Dose: 1 mg Prednisone (Prednisone) 20 mg PO ONETIME ONE Stop: 09/24/19 13:11 Last Admin: 09/24/19 13:58 Dose: 20 mg Sulindac (Clinoril) 150 mg PO BIDMEALS [facility] Last Admin: 09/24/19 17:05 Dose: 150 mg - Exam Quality Assessment: DVT Prophylaxis General: Alert, Oriented, Cooperative, No Acute Distress HEENT: Pupils Equal, Pupils Reactive, Mucous Membr. Moist/[place] Neck: Supple, Trachea Midline Lungs: Clear to Auscultation, Normal Respiratory Effort Cardiovascular: Irregular Rhythm, Tachycardia (90-100's ) GI/Abdominal Exam: Normal Bowel Sounds, Soft, Non-Tender, No Organomegaly, No Distention, No Abnormal Bruit (Male) Exam: Deferred Back Exam: Normal Inspection, Full Range of Motion Extremities: Normal Inspection, Normal Range of Motion, Non-Tender, No Pedal Edema, Normal Capillary Refill Skin: Warm, Dry, Intact Neurological: No New Focal Deficit Psy/Mental Status: Alert, Normal Affect, Normal Mood - Problem List & Annotations (1) ESR raised SNOMED Code(s): 129989649 Code(s): R70.0 - ELEVATED ERYTHROCYTE SEDIMENTATION RATE Status: Acute Priority: Medium Current Visit: Yes (2) Hypochloremia SNOMED Code(s): 61639867 Code(s): E87.8 - OTH DISORDERS OF ELECTROLYTE AND FLUID BALANCE, NEC Status : Acute Priority: Medium Current Visit: Yes (3) Hyponatremia SNOMED Code(s): 44945019 Code(s): E87.1 - HYPO-OSMOLALITY AND HYPONATREMIA Status: Acute Priority : Medium Current Visit: Yes (4) Joint pain SNOMED Code(s): 47480928 Code(s): M25.50 - PAIN IN UNSPECIFIED JOINT Status: Acute Priority: Medium Current Visit: Yes Qualifiers: Joint pain location: unspecified Qualified Code(s): M25.50 - Pain in unspecified joint (5) Normocytic normochromic anemia SNOMED Code(s): 60422927 Code(s): D64.9 - ANEMIA, UNSPECIFIED Status: Acute Priority: Medium Current Visit: Yes (6) Paroxysmal atrial fibrillation with RVR SNOMED Code(s): 425815142, 729498979174954 Code(s): I48.0 - PAROXYSMAL ATRIAL FIBRILLATION Status: Acute Priority: High Current Visit: Yes (7) Polymyalgia rheumatica syndrome SNOMED Code(s): 98775739 Code(s): M35.3 - POLYMYALGIA RHEUMATICA Status: Acute Priority: Medium Current Visit: Yes - Problem List Review Problem List Initiated/Reviewed/Updated: Yes - Plan Plan:: Paroxysmal atrial fibrillation with RVR Previous episodes reported by son Completely asymptomatic Given Diltiazem bolus and started on Drip in ED--> Drip discontinued but resumed to to elevated HR TSH normal O2 trend 90-100% PLAN - Attempted Diltiazem PO 240mg QD with minimal response - Started amiodarone drip. Convert to PO when appropriate - Telemetry - Echocardiogram obtained - Grade 1 impaired relaxation of LV diastolic filling , mild left atrium dilation, mild MV regurgitation - Xarelto started Polyarticular pain + ESR raised No trauma No obvious deformities Attempted ibuprofen at home with minimal improvement Unlikely to be autoimmune condition but will order w/u to r/o Asked for too much morphine overnight PLAN - TATIANA - Aspercreme as needed - Dicontinue morphine, only Tylenol #3 - PT/OT Iron deficiency anemia No signs of blood loss No previous screening No red flags (weight loss, fatigue, early satiety) PLAN - Iron replacement q48h Pancreatic mass Equivocal history of diagnosis in 2015 Son states it it cancer, however this does not match the natural history of pancreatic cancer PLAN - Request records PROPHYLAXIS DVT- SCDs GI- not indicated CODE STATUS: FULL CODE DISPOSITION: Patient will be re-admitted to the ICU for Amiodarone drip. PT/OT evaluation requested, CM ans SW aware of case.
[2019-09-26] MEDS: Diltiazem 300 MG Cap.CD PO SCH (09:00)
[2019-09-26] MEDS ORDERED: LORazepam 2 MG/ML SDV IVPUSH ONE (09:41)
[2019-09-26] MEDS: Acetaminophen/HYDROcodone 325-10 MG Tab PO PRN ×2 (09:47→20:29)
[2019-09-26] MEDS ORDERED: Rivaroxaban 15 MG Tab PO SCH (21:00)
[2019-09-27] MEDS: Acetaminophen/HYDROcodone 325-10 MG Tab PO PRN ×2 (03:43→18:21)
--- NOTE | 2019-09-27 07:31 | PCM.PN ---
- General Info Date of Service: 09/27/19 Admission Dx/Problem (Free Text): Admission Diagnosis/Problem Admission Diagnosis/Problem Atrial fibrillation with rapid ventricular response - Patient Data Vitals - Most Recent: Last Vital Signs Temp 98.4 F 09/27/19 00:00 Pulse 95 09/27/19 03:54 Resp 20 09/27/19 03:54 BP 108/75 09/27/19 03:54 Pulse Ox 93 L 09/27/19 03:54 Weight - Most Recent: 168 lb I&O - Last 24 Hours: Intake & Output 09/26/19 09/27/19 09/27/19 22:59 06:59 14:59 Intake Total 1340 320 Balance 1340 320 Lab Results Last 24 Hours: Laboratory Results - last 24 hr 09/27/19 Range/Units 05:30 WBC 7.37 (4.23-9.07) K/mm3 RBC 3.76 L (4.63-6.08) M/mm3 Hgb 11.6 L (13.7-17.5) gm/dl Hct 32.8 L (40.1-51.0) % MCV 87.2 (79.0-92.2) fl MCH 30.9 (25.7-32.2) pg MCHC 35.4 (32.2-35.5) g/dl RDW Std Deviation 39.4 (35.1-43.9) fL Plt Count 239 (163-337) K/mm3 MPV 11.7 (9.4-12.3) fl Neut % (Auto) 70.6 H (34.0-67.9) % Lymph % (Auto) 11.9 L (21.8-53.1) % Morris % (Auto) 15.6 H (5.3-12.2) % Eos % (Auto) 1.6 (0.8-7.0) Baso % (Auto) 0.3 (0.1-1.2) % Neut # (Auto) 5.20 (1.78-5.38) K/mm3 Lymph # (Auto) 0.88 L (1.32-3.57) K/mm3 Morris # (Auto) 1.15 H (0.30-0.82) K/mm3 Eos # (Auto) 0.12 (0.04-0.54) K/mm3 Baso # (Auto) 0.02 (0.01-0.08) K/mm3 Manual Slide Review Abnormal smear Med Orders - Current: Current Medications Acetaminophen (Tylenol) 650 mg PO Q4H PRN PRN Reason: Pain Hydrocodone Bitart/Acetaminophen (Lester 325-10 Mg) 1 tab PO Q6H PRN PRN Reason: Pain (moderate 4-6) Last Admin: 09/27/19 03:43 Dose: 1 tab Amiodarone HCl (Cordarone) 300 mg PO BID [facility] Ferrous Sulfate (Ferrous Sulfate) 324 mg PO Q48H [facility] Last Admin: 09/25/19 16:43 Dose: 324 mg Amiodarone HCl/Dextrose (Nexterone In Dextrose 360 Mg/200 Ml) 360 mg in 200 mls @ 33.333 mls/hr IV ASDIRECTED [facility]; Protocol Last Admin: 09/27/19 00:04 Dose: 18.7 mls/hr Lidocaine (Aspercreme 4%) 1 each TOP DAILY PRN PRN Reason: Pain Last Admin: 09/25/19 11:18 Dose: 1 each Miscellaneous Information (Remove Patch) 0 ea TRDERM Q24H PRN PRN Reason: PAIN PATCH REMOVAL Ondansetron HCl (Zofran Odt) 4 mg PO Q6H PRN PRN Reason: nausea, able to take PO Ondansetron HCl (Zofran) 4 mg IV Q6H PRN PRN Reason: Nausea/Vomiting Rivaroxaban (Xarelto) 20 mg PO WITHAMAURY [facility] Senna/Docusate Sodium (Senna Plus) 1 tab PO BID PRN PRN Reason: Constipation Sodium Chloride (Saline Flush) 10 ml FLUSH ASDIRECTED PRN PRN Reason: Keep Vein Open Last Admin: 09/24/19 11:31 Dose: 10 ml Sulindac (Clinoril) 150 mg PO BID@0800,1700 [facility] Last Admin: 09/26/19 16:04 Dose: 150 mg Discontinued Medications Diltiazem HCl (Cardizem) 10 mg IVPUSH ONETIME ONE Stop: 09/24/19 12:13 Last Admin: 09/24/19 12:22 Dose: 10 mg Diltiazem HCl (Cardizem) 25 mg IVPUSH NOW STA Stop: 09/24/19 14:18 Last Admin: 09/24/19 14:47 Dose: 25 mg Diltiazem HCl (Cardizem Cd) 300 mg PO DAILY [facility] Last Admin: 09/26/19 09:00 Dose: 300 mg Diltiazem HCl (Cardizem) 25.7 mg IVPUSH ONETIME ONE Stop: 09/26/19 02:51 Last Admin: 09/26/19 03:08 Dose: 25.7 mg Diltiazem HCl (Cardizem) 25.7 mg IVPUSH ONETIME ONE Stop: 09/26/19 05:14 Last Admin: 09/26/19 05:22 Dose: 25.7 mg Hydromorphone HCl (Dilaudid) 0.5 mg IVPUSH ONETIME ONE Stop: 09/24/19 12:03 Last Admin: 09/24/19 12:08 Dose: 0.5 mg Diltiazem HCl 125 mg/ Sodium (Chloride) 125 mls @ 10 mls/hr IV TITRATE [facility]; Protocol Last Titration: 09/24/19 20:07 Dose: 0 mg/hr, 0 mls/hr Amiodarone HCl/Dextrose (Nexterone In Dextrose 150 Mg/100 Ml) 100 mls @ 600 mls /hr IV .BOLUS ONE; Protocol Stop: 09/26/19 09:58 Last Admin: 09/26/19 10:00 Dose: 600 mls/hr Lorazepam (Ativan) 0.5 mg IVPUSH ONETIME ONE Stop: 09/26/19 09:42 Last Admin: 09/26/19 09:47 Dose: 0.5 mg Morphine Sulfate (Morphine) 2 mg IVPUSH Q4H PRN PRN Reason: Pain (severe 7-10) Stop: 09/25/19 14:22 Last Admin: 09/24/19 19:46 Dose: 2 mg Morphine Sulfate (Morphine) 1 mg IVPUSH ONETIME ONE Stop: 09/26/19 05:14 Last Admin: 09/26/19 05:23 Dose: 1 mg Prednisone (Prednisone) 20 mg PO ONETIME ONE Stop: 09/24/19 13:11 Last Admin: 09/24/19 13:58 Dose: 20 mg Rivaroxaban (Xarelto) 15 mg PO BID [facility] Last Admin: 09/26/19 20:29 Dose: 15 mg Sulindac (Clinoril) 150 mg PO BIDMEALS [facility] Last Admin: 09/24/19 17:05 Dose: 150 mg - Problem List & Annotations (1) ESR raised SNOMED Code(s): 552357285 Code(s): R70.0 - ELEVATED ERYTHROCYTE SEDIMENTATION RATE Status: Acute Priority: Medium Current Visit: Yes (2) Hypochloremia SNOMED Code(s): 67207075 Code(s): E87.8 - OTH DISORDERS OF ELECTROLYTE AND FLUID BALANCE, NEC Status : Acute Priority: Medium Current Visit: Yes (3) Hyponatremia SNOMED Code(s): 71656849 Code(s): E87.1 - HYPO-OSMOLALITY AND HYPONATREMIA Status: Acute Priority : Medium Current Visit: Yes (4) Joint pain SNOMED Code(s): 20595376 Code(s): M25.50 - PAIN IN UNSPECIFIED JOINT Status: Acute Priority: Medium Current Visit: Yes Qualifiers: Joint pain location: unspecified Qualified Code(s): M25.50 - Pain in unspecified joint (5) Normocytic normochromic anemia SNOMED Code(s): 42061725 Code(s): D64.9 - ANEMIA, UNSPECIFIED Status: Acute Priority: Medium Current Visit: Yes (6) Paroxysmal atrial fibrillation with RVR SNOMED Code(s): 110622752, 172423196766666 Code(s): I48.0 - PAROXYSMAL ATRIAL FIBRILLATION Status: Acute Priority: High Current Visit: Yes (7) Polymyalgia rheumatica syndrome SNOMED Code(s): 86696061 Code(s): M35.3 - POLYMYALGIA RHEUMATICA Status: Acute Priority: Medium Current Visit: Yes - Problem List Review Problem List Initiated/Reviewed/Updated: Yes - My Orders Last 24 Hours: My Active Orders 09/26/19 09:40 Acetaminophen/HYDROcodone [Lester 325-10 MG] 1 tab PO Q6H PRN 09/26/19 10:00 Amiodarone In Dextrose,Iso-Osm [Nexterone in Dextrose 360 MG/200 ML] 360 mg in 200 ml IV ASDIRECTED 09/27/19 05:30 BASIC METABOLIC PANEL,BMP [CHEM] AM MAGNESIUM [CHEM] AM - Plan Plan:: Paroxysmal atrial fibrillation with RVR Previous episodes reported by son Completely asymptomatic Given Diltiazem bolus and started on Drip in ED--> Drip discontinued but resumed to to elevated HR TSH normal O2 trend 90-100% PLAN - Attempted Diltiazem PO 240mg QD with minimal response - Started amiodarone drip. Convert to 300mg PO BID today - Telemetry - Echocardiogram obtained - Grade 1 impaired relaxation of LV diastolic filling , mild left atrium dilation, mild MV regurgitation - Xarelto started Polyarticular pain + ESR raised No trauma No obvious deformities Attempted ibuprofen at home with minimal improvement Unlikely to be autoimmune condition but will order w/u to r/o Had been asking for morphine frequently PLAN - TATIANA - Aspercreme as needed - Dicontinue morphine, only Tylenol #3 - PT/OT Iron deficiency anemia No signs of blood loss No previous screening No red flags (weight loss, fatigue, early satiety) PLAN - Iron replacement q48h Pancreatic mass Equivocal history of diagnosis in 2015 Son states it it cancer, however this does not match the natural history of pancreatic cancer PLAN - Request records PROPHYLAXIS DVT- SCDs GI- not indicated CODE STATUS: FULL CODE DISPOSITION: Patient will be re-admitted to the ICU for Amiodarone drip. PT/OT evaluation requested, CM ans SW aware of case.
[2019-09-27] MEDS ORDERED: Amiodarone 200 MG Tab PO SCH (09:00)
[2019-09-27] MEDS ORDERED: Amiodarone 200 MG Tab PO ONE (10:20)
--- NOTE | 2019-09-27 15:21 | PCM.PN ---
- General Info Date of Service: 09/27/19 Subjective Update: Slept ok Had a BM last night Tolerating diet Ambulating with walker - Patient Data Vitals - Most Recent: Last Vital Signs Temp 98.1 F 09/27/19 12:00 Pulse 95 09/27/19 03:54 Resp 19 09/27/19 12:00 BP 105/86 09/27/19 12:00 Pulse Ox 94 L 09/27/19 12:00 Weight - Most Recent: 76.204 kg - Exam General: Alert, Oriented, Cooperative, No Acute Distress HEENT: Pupils Equal, Pupils Reactive, EOMI, Mucous Membr. Moist/[place] Neck: Supple, Trachea Midline, No JVD, No Thyromegaly Lungs: Clear to Auscultation, Normal Respiratory Effort. No: Crackles, Rales, Rhonchi, Wheezing Cardiovascular: Irregular Rhythm, Tachycardia. No: Murmurs, Gallops, Rubs GI/Abdominal Exam: Normal Bowel Sounds, Soft, Non-Tender, No Organomegaly Back Exam: Normal Inspection Extremities: Normal Inspection - Problem List & Annotations (1) Hyponatremia SNOMED Code(s): 98732844 Code(s): E87.1 - HYPO-OSMOLALITY AND HYPONATREMIA Status: Acute Priority : Medium Current Visit: Yes (2) Paroxysmal atrial fibrillation with RVR SNOMED Code(s): 261257739, [id number] Code(s): I48.0 - PAROXYSMAL ATRIAL FIBRILLATION Status: Acute Priority: High Current Visit: Yes (3) Pancreatic mass SNOMED Code(s): 541161991 Code(s): K86.9 - DISEASE OF PANCREAS, UNSPECIFIED Status: Acute Current Visit: No (4) Hypochloremia SNOMED Code(s): 36368046 Code(s): E87.8 - OTH DISORDERS OF ELECTROLYTE AND FLUID BALANCE, NEC Status : Acute Priority: Medium Current Visit: Yes (5) Normocytic normochromic anemia SNOMED Code(s): 61612909 Code(s): D64.9 - ANEMIA, UNSPECIFIED Status: Acute Priority: Medium Current Visit: Yes (6) ESR raised SNOMED Code(s): 619327004 Code(s): R70.0 - ELEVATED ERYTHROCYTE SEDIMENTATION RATE Status: Acute Priority: Medium Current Visit: Yes (7) Joint pain SNOMED Code(s): 00223891 Code(s): M25.50 - PAIN IN UNSPECIFIED JOINT Status: Acute Priority: Medium Current Visit: Yes Qualifiers: Joint pain location: unspecified Qualified Code(s): M25.50 - Pain in unspecified joint - Problem List Review Problem List Initiated/Reviewed/Updated: Yes - Plan Plan:: Paroxysmal atrial fibrillation with RVR- on Xarelto Previous episode in February responded to Cardizem Attempted Cardizem without change Amiodarone load done Normal TSH Echocardiogram with grade 1 DD PLAN - Amiodarone 400mg BID - Digoxin load - Metoprolol 25mg BID - Continue Xarelto Polyarticular pain + ESR raised No trauma No obvious deformities Attempted ibuprofen at home with minimal improvement Unlikely to be autoimmune condition but will order w/u to r/o Asked for too much morphine overnight PLAN - TATIANA - Aspercreme as needed - Dicontinue morphine, only Tylenol #3 - PT/OT Iron deficiency anemia No signs of blood loss No previous screening No red flags (weight loss, fatigue, early satiety) PLAN - Iron replacement q48h Pancreatic mass Equivocal history of diagnosis in 2015 Son states it it cancer, however this does not match the natural history of pancreatic cancer PLAN - Request records PROPHYLAXIS DVT- SCDs GI- not indicated CODE STATUS: FULL CODE DISPOSITION: Patient admitted on Diltiazem drip with relapse in RVR, given Amiodarone load, back in ICU, started on metoprolol and digoxin today. PT recommending home with home health.
[2019-09-27] MEDS: Metoprolol Tartrate 25 MG Tab PO SCH (15:58)
[2019-09-27] MEDS: Digoxin 500 MCG/2 ML Amp IVPUSH SCH ×2 (15:58→21:31)
[2019-09-27] MEDS: Rivaroxaban 10 MG Tab PO SCH (16:00)
[2019-09-27] MEDS: Ferrous Sulfate 324 MG Tab.EC PO SCH (16:00)
[2019-09-27] MEDS ORDERED: Metoprolol Tartrate 5 MG/5 ML SDV IVPUSH ONE (16:30)
[2019-09-27] MEDS: Amiodarone 200 MG Tab PO SCH (20:29)
[2019-09-28] MEDS: Acetaminophen/HYDROcodone 325-10 MG Tab PO PRN ×2 (00:54→06:39)
[2019-09-28] MEDS: Digoxin 500 MCG/2 ML Amp IVPUSH SCH (03:02)
[2019-09-28] MEDS: Metoprolol Tartrate 25 MG Tab PO SCH ×2 (03:05→19:18)
[2019-09-28] MEDS ORDERED: Diltiazem 50 MG/10 ML SDV IVPUSH ONE (08:56)
[2019-09-28] MEDS ORDERED: Diltiazem 125 MG in Sodium Chloride 0.9% 100 ML IV SCH (09:15)
[2019-09-28] MEDS ORDERED: Pantoprazole 40 MG Vial IVPUSH ONE (09:30)
[2019-09-28] MEDS: Tamsulosin 0.4 MG Cap.ER PO SCH (11:12)
[2019-09-28] MEDS: Simvastatin 10 MG Tab PO SCH (11:13)
[2019-09-28] MEDS: Amiodarone 200 MG Tab PO SCH ×2 (13:39→20:55)
[2019-09-28] MEDS: Digoxin 125 MCG Tab PO SCH (14:48)
--- NOTE | 2019-09-28 15:50 | PCM.PN ---
- General Info Date of Service: 09/28/19 Admission Dx/Problem (Free Text): A. fib with rapid ventricular response Subjective Update: Patient is feeling well. He denies any shortness of breath or chest pain. Patient would like to go home. Unfortunately, patient continues to have elevated heart rate into the 130s and 140s. - Review of Systems General: Reports: No Symptoms HEENT: Reports: No Symptoms Pulmonary: Reports: No Symptoms Cardiovascular: Reports: No Symptoms Gastrointestinal: Reports: No Symptoms - Patient Data Vitals - Most Recent: Last Vital Signs Temp 98.3 F 09/28/19 15:00 Pulse 90 09/28/19 14:48 Resp 16 09/28/19 15:00 BP 101/72 09/28/19 15:00 Pulse Ox 94 L 09/28/19 15:00 Weight - Most Recent: 161 lb 1 oz I&O - Last 24 Hours: Intake & Output 09/28/19 09/28/19 09/28/19 06:59 14:59 22:59 Intake Total 120 120 540 Balance 120 120 540 Lab Results Last 24 Hours: Laboratory Results - last 24 hr 09/24/19 09/28/19 09/28/19 Range/Units 11:35 09:54 09:54 WBC 7.06 (4.23-9.07) K/mm3 RBC 4.06 L (4.63-6.08) M/mm3 Hgb 12.2 L (13.7-17.5) gm/dl Hct 35.9 L (40.1-51.0) % MCV 88.4 (79.0-92.2) fl MCH 30.0 (25.7-32.2) pg MCHC 34.0 (32.2-35.5) g/dl RDW Std Deviation 41.4 (35.1-43.9) fL Plt Count 277 (163-337) K/mm3 MPV 10.6 (9.4-12.3) fl Neut % (Auto) 78.9 H (34.0-67.9) % Lymph % (Auto) 9.8 L (21.8-53.1) % Elliott % (Auto) 9.5 (5.3-12.2) % Eos % (Auto) 1.4 (0.8-7.0) Baso % (Auto) 0.3 (0.1-1.2) % Neut # (Auto) 5.57 H (1.78-5.38) K/mm3 Lymph # (Auto) 0.69 L (1.32-3.57) K/mm3 Elliott # (Auto) 0.67 (0.30-0.82) K/mm3 Eos # (Auto) 0.10 (0.04-0.54) K/mm3 Baso # (Auto) 0.02 (0.01-0.08) K/mm3 Manual Slide Review Abnormal smear Sodium 134 L (136-145) mEq/L Potassium 4.3 (3.5-5.1) mEq/L Chloride 101 (98-107) mEq/L Carbon Dioxide 26 (21-32) mEq/L Anion Gap 11.3 (5-15) BUN 14 (7-18) mg/dL Creatinine 0.8 (0.7-1.3) mg/dL Est Cr Clr Drug Dosing 68.49 mL/min Estimated GFR (MDRD) > 60 (>60) mL/min BUN/Creatinine Ratio 17.5 (14-18) Glucose 185 H (83-115) mg/dL Calcium 8.7 (8.5-10.1) mg/dL Magnesium 2.1 (1.8-2.4) mg/dl Total Bilirubin 0.6 (0.2-1.0) mg/dL AST 17 (15-37) U/L ALT 53 (16-63) U/L Alkaline Phosphatase 68 (46-116) U/L Total Protein 6.3 L (6.4-8.2) g/dl Albumin 2.3 L (3.4-5.0) g/dl Globulin 4.0 gm/dL Albumin/Globulin Ratio 0.6 L (1-2) TATIANA Ref Lab Negative Med Orders - Current: Current Medications Acetaminophen (Tylenol) 650 mg PO Q4H PRN PRN Reason: Pain Hydrocodone Bitart/Acetaminophen (Corinne 325-10 Mg) 1 tab PO Q6H PRN PRN Reason: Pain (moderate 4-6) Last Admin: 09/28/19 06:39 Dose: 1 tab Amiodarone HCl (Cordarone) 400 mg PO BID [facility] Stop: 09/30/19 09:01 Digoxin (Lanoxin) 125 mcg PO DAILY [facility] Last Admin: 09/28/19 14:48 Dose: 125 mcg Ferrous Sulfate (Ferrous Sulfate) 324 mg PO Q48H [facility] Last Admin: 09/27/19 16:00 Dose: 324 mg Diltiazem HCl 125 mg/ Sodium (Chloride) 125 mls @ 5 mls/hr IV TITRATE [facility]; Protocol Last Titration: 09/28/19 15:12 Dose: 15 mg/hr, 15 mls/hr Lidocaine (Aspercreme 4%) 1 each TOP DAILY PRN PRN Reason: Pain Last Admin: 09/25/19 11:18 Dose: 1 each Miscellaneous Information (Remove Patch) 0 ea TRDERM Q24H PRN PRN Reason: PAIN PATCH REMOVAL Ondansetron HCl (Zofran Odt) 4 mg PO Q6H PRN PRN Reason: nausea, able to take PO Ondansetron HCl (Zofran) 4 mg IV Q6H PRN PRN Reason: Nausea/Vomiting Pantoprazole Sodium (Protonix) 40 mg PO ACBREAKFAST [facility] Rivaroxaban (Xarelto) 20 mg PO WITHDINNER [facility] Last Admin: 09/27/19 16:00 Dose: 20 mg Senna/Docusate Sodium (Senna Plus) 1 tab PO BID PRN PRN Reason: Constipation Last Admin: 09/27/19 20:29 Dose: 1 tab Simvastatin (Zocor) 10 mg PO DAILY [facility] Last Admin: 09/28/19 11:13 Dose: 10 mg Sodium Chloride (Saline Flush) 10 ml FLUSH ASDIRECTED PRN PRN Reason: Keep Vein Open Last Admin: 09/24/19 11:31 Dose: 10 ml Sulindac (Clinoril) 150 mg PO BID@0800,1700 [facility] Last Admin: 09/28/19 09:27 Dose: 150 mg Tamsulosin HCl (Flomax) 0.4 mg PO DAILY [facility] Last Admin: 09/28/19 11:12 Dose: 0.4 mg Discontinued Medications Amiodarone HCl (Cordarone) 300 mg PO BID [facility] Last Admin: 09/27/19 08:09 Dose: 300 mg Amiodarone HCl (Cordarone) 100 mg PO ONETIME ONE Stop: 09/27/19 10:21 Last Admin: 09/27/19 10:29 Dose: 100 mg Amiodarone HCl (Cordarone) 400 mg PO BID [facility] Last Admin: 09/28/19 13:39 Dose: Not Given Digoxin (Lanoxin) 250 mcg IVPUSH Q6H [facility] Stop: 09/28/19 09:31 Last Admin: 09/28/19 03:02 Dose: 250 mcg Diltiazem HCl (Cardizem) 10 mg IVPUSH ONETIME ONE Stop: 09/24/19 12:13 Last Admin: 09/24/19 12:22 Dose: 10 mg Diltiazem HCl (Cardizem) 25 mg IVPUSH NOW STA Stop: 09/24/19 14:18 Last Admin: 09/24/19 14:47 Dose: 25 mg Diltiazem HCl (Cardizem Cd) 300 mg PO DAILY [facility] Last Admin: 09/26/19 09:00 Dose: 300 mg Diltiazem HCl (Cardizem) 25.7 mg IVPUSH ONETIME ONE Stop: 09/26/19 02:51 Last Admin: 09/26/19 03:08 Dose: 25.7 mg Diltiazem HCl (Cardizem) 25.7 mg IVPUSH ONETIME ONE Stop: 09/26/19 05:14 Last Admin: 09/26/19 05:22 Dose: 25.7 mg Diltiazem HCl (Cardizem) 10 mg IVPUSH ONETIME ONE Stop: 09/28/19 08:57 Last Admin: 09/28/19 09:11 Dose: 10 mg Hydromorphone HCl (Dilaudid) 0.5 mg IVPUSH ONETIME ONE Stop: 09/24/19 12:03 Last Admin: 09/24/19 12:08 Dose: 0.5 mg Diltiazem HCl 125 mg/ Sodium (Chloride) 125 mls @ 10 mls/hr IV TITRATE [facility]; Protocol Last Titration: 09/24/19 20:07 Dose: 0 mg/hr, 0 mls/hr Amiodarone HCl/Dextrose (Nexterone In Dextrose 150 Mg/100 Ml) 100 mls @ 600 mls /hr IV .BOLUS ONE; Protocol Stop: 09/26/19 09:58 Last Admin: 09/26/19 10:00 Dose: 600 mls/hr Amiodarone HCl/Dextrose (Nexterone In Dextrose 360 Mg/200 Ml) 360 mg in 200 mls @ 33.333 mls/hr IV ASDIRECTED [facility]; Protocol Last Admin: 09/27/19 00:04 Dose: 18.7 mls/hr Lorazepam (Ativan) 0.5 mg IVPUSH ONETIME ONE Stop: 09/26/19 09:42 Last Admin: 09/26/19 09:47 Dose: 0.5 mg Metoprolol Tartrate (Lopressor) 25 mg PO Q12H [facility] Last Admin: 09/28/19 03:05 Dose: 25 mg Metoprolol Tartrate (Lopressor) 5 mg IVPUSH ONETIME ONE Stop: 09/27/19 16:31 Last Admin: 09/27/19 16:47 Dose: 5 mg Morphine Sulfate (Morphine) 2 mg IVPUSH Q4H PRN PRN Reason: Pain (severe 7-10) Stop: 09/25/19 14:22 Last Admin: 09/24/19 19:46 Dose: 2 mg Morphine Sulfate (Morphine) 1 mg IVPUSH ONETIME ONE Stop: 09/26/19 05:14 Last Admin: 09/26/19 05:23 Dose: 1 mg Pantoprazole Sodium (Protonix Iv) 40 mg IVPUSH ONETIME ONE Stop: 09/28/19 09:31 Last Admin: 09/28/19 11:12 Dose: 40 mg Prednisone (Prednisone) 20 mg PO ONETIME ONE Stop: 09/24/19 13:11 Last Admin: 09/24/19 13:58 Dose: 20 mg Rivaroxaban (Xarelto) 15 mg PO BID [facility] Last Admin: 09/26/19 20:29 Dose: 15 mg Sulindac (Clinoril) 150 mg PO BIDMEALS [facility] Last Admin: 09/24/19 17:05 Dose: 150 mg - Exam Quality Assessment: No: Supplemental Oxygen General: Alert, Oriented HEENT: Pupils Equal Neck: Supple Lungs: Clear to Auscultation, Normal Respiratory Effort Cardiovascular: Irregular Rhythm, Tachycardia GI/Abdominal Exam: Normal Bowel Sounds, Soft, Non-Tender, No Distention Extremities: Normal Inspection, Normal Range of Motion, No Pedal Edema Skin: Warm, Dry, Intact Neurological: No New Focal Deficit Psy/Mental Status: Alert, Normal Affect, Normal Mood - Problem List Review Problem List Initiated/Reviewed/Updated: Yes - My Orders Last 24 Hours: My Active Orders 09/28/19 09:15 Diltiazem 125 mg Sodium Chloride 0.9% [Normal Saline] 100 ml IV TITRATE 09/28/19 09:45 Simvastatin [Zocor] 10 mg PO DAILY Tamsulosin [Flomax] 0.4 mg PO DAILY 09/28/19 14:00 Digoxin [Lanoxin] 125 mcg PO DAILY 09/28/19 21:00 Amiodarone [Cordarone] 400 mg PO BID 09/29/19 05:11 CBC WITH AUTO DIFF [HEME] AM CMP [COMPREHENSIVE METABOLIC PN,CMP] [CHEM] AM MAGNESIUM [CHEM] AM 09/29/19 06:00 Pantoprazole [ProTONIX] 40 mg PO ACBREAKFAST 09/30/19 05:11 CBC WITH AUTO DIFF [HEME] AM CMP [COMPREHENSIVE METABOLIC PN,CMP] [CHEM] AM MAGNESIUM [CHEM] AM 10/01/19 05:11 CBC WITH AUTO DIFF [HEME] AM CMP [COMPREHENSIVE METABOLIC PN,CMP] [CHEM] AM MAGNESIUM [CHEM] AM 10/02/19 05:11 CBC WITH AUTO DIFF [HEME] AM CMP [COMPREHENSIVE METABOLIC PN,CMP] [CHEM] AM MAGNESIUM [CHEM] AM - Plan Plan:: Paroxysmal atrial fibrillation with RVR- on Xarelto Previous episode in February responded to Cardizem Attempted Cardizem without change Amiodarone load done Normal TSH Echocardiogram with grade 1 DD PLAN - Amiodarone 400mg BID - Digoxin load - Metoprolol 25mg BID - Restart diltiazem drip - Spoke with on-call human resources team member at [facility] in [place] who recommended switching over to Cardizem 24-hour 180 mg twice daily, stopping the drip, and giving metoprolol approximately 1 hour later. - Continue Xarelto Polyarticular pain + ESR raised No trauma No obvious deformities Attempted ibuprofen at home with minimal improvement Unlikely to be autoimmune condition but will order w/u to r/o Asked for too much morphine overnight PLAN - TATIANA - Aspercreme as needed - Dicontinue morphine, only Tylenol #3 - PT/OT Iron deficiency anemia No signs of blood loss No previous screening No red flags (weight loss, fatigue, early satiety) PLAN - Iron replacement q48h Pancreatic mass Equivocal history of diagnosis in 2015 Son states it it cancer, however this does not match the natural history of pancreatic cancer PLAN - Request records PROPHYLAXIS DVT- SCDs GI-Protonix 40 mg daily secondary to Xarelto and sulindac increasing risk for upper GI bleed CODE STATUS: FULL CODE DISPOSITION: Patient admitted on Diltiazem drip with relapse in RVR, given Amiodarone load, back in ICU, started on metoprolol and digoxin today. PT recommending home with home health.
[2019-09-28] MEDS: Diltiazem 180 MG Cap.CD PO SCH (19:18)
[2019-09-28] MEDS: Rivaroxaban 10 MG Tab PO SCH (19:18)
[2019-09-29] MEDS: Pantoprazole 40 MG Tab.CR PO SCH (05:49)
[2019-09-29] MEDS: Metoprolol Tartrate 25 MG Tab PO SCH (06:45)
[2019-09-29] MEDS: Amiodarone 200 MG Tab PO SCH ×2 (08:23→20:05)
[2019-09-29] MEDS: Simvastatin 10 MG Tab PO SCH (08:24)
[2019-09-29] MEDS: Tamsulosin 0.4 MG Cap.ER PO SCH (08:24)
[2019-09-29] MEDS: Acetaminophen/HYDROcodone 325-10 MG Tab PO PRN ×3 (08:25→20:06)
[2019-09-29] MEDS: Digoxin 125 MCG Tab PO SCH (10:43)
--- NOTE | 2019-09-29 13:58 | PCM.PN ---
- General Info Date of Service: 09/29/19 Admission Dx/Problem (Free Text): A. fib with rapid ventricular response Subjective Update: Patient states he is feeling well and is ready to go home. Unfortunately, he has developed an asymptomatic bradycardia with rates into the 40s. Patient denies any lightheadedness, dizziness, chest pain, or shortness of breath. Functional Status: Reports: Pain Controlled - Review of Systems General: Reports: No Symptoms HEENT: Reports: No Symptoms Pulmonary: Reports: No Symptoms Cardiovascular: Reports: No Symptoms Gastrointestinal: Reports: No Symptoms - Patient Data Vitals - Most Recent: Last Vital Signs Temp 98.5 F 09/29/19 04:00 Pulse 52 L 09/29/19 12:00 Resp 18 09/29/19 12:00 BP 106/56 L 09/29/19 12:00 Pulse Ox 96 09/29/19 12:00 Weight - Most Recent: 163 lb 12.8 oz I&O - Last 24 Hours: Intake & Output 09/28/19 09/29/19 09/29/19 22:59 06:59 14:59 Intake Total 1800 0 360 Balance 1800 0 360 Lab Results Last 24 Hours: Laboratory Results - last 24 hr 09/29/19 09/29/19 09/29/19 Range/Units 05:25 05:25 05:25 WBC 7.08 (4.23-9.07) K/mm3 RBC 3.79 L (4.63-6.08) M/mm3 Hgb 11.2 L (13.7-17.5) gm/dl Hct 33.5 L (40.1-51.0) % MCV 88.4 (79.0-92.2) fl MCH 29.6 (25.7-32.2) pg MCHC 33.4 (32.2-35.5) g/dl RDW Std Deviation 40.5 (35.1-43.9) fL Plt Count 291 (163-337) K/mm3 MPV 10.7 (9.4-12.3) fl Neut % (Auto) 74.6 H (34.0-67.9) % Lymph % (Auto) 10.5 L (21.8-53.1) % [place] % (Auto) 12.9 H (5.3-12.2) % Eos % (Auto) 1.8 (0.8-7.0) Baso % (Auto) 0.1 (0.1-1.2) % Neut # (Auto) 5.28 (1.78-5.38) K/mm3 Lymph # (Auto) 0.74 L (1.32-3.57) K/mm3 [place] # (Auto) 0.91 H (0.30-0.82) K/mm3 Eos # (Auto) 0.13 (0.04-0.54) K/mm3 Baso # (Auto) 0.01 (0.01-0.08) K/mm3 Sodium 135 L (136-145) mEq/L Potassium 4.5 (3.5-5.1) mEq/L Chloride 102 (98-107) mEq/L Carbon Dioxide 25 (21-32) mEq/L Anion Gap 12.5 (5-15) BUN 15 (7-18) mg/dL Creatinine 0.8 (0.7-1.3) mg/dL Est Cr Clr Drug Dosing TNP Estimated GFR (MDRD) > 60 (>60) mL/min BUN/Creatinine Ratio 18.8 H (14-18) Glucose 103 (83-115) mg/dL Calcium 8.4 L (8.5-10.1) mg/dL Magnesium 2.0 (1.8-2.4) mg/dl Total Bilirubin 0.5 (0.2-1.0) mg/dL AST 17 (15-37) U/L ALT 45 (16-63) U/L Alkaline Phosphatase 65 (46-116) U/L Total Protein 5.9 L (6.4-8.2) g/dl Albumin 2.1 L (3.4-5.0) g/dl Globulin 3.8 gm/dL Albumin/Globulin Ratio 0.6 L (1-2) Digoxin 1.0 (0.9-2.0) ng/mL Med Orders - Current: Current Medications Acetaminophen (Tylenol) 650 mg PO Q4H PRN PRN Reason: Pain Hydrocodone Bitart/Acetaminophen ([place] 325-10 Mg) 1 tab PO Q6H PRN PRN Reason: Pain (moderate 4-6) Last Admin: 09/29/19 08:25 Dose: 1 tab Amiodarone HCl (Cordarone) 400 mg PO BID [facility] Stop: 09/30/19 09:01 Last Admin: 09/29/19 08:23 Dose: 400 mg Digoxin (Lanoxin) 125 mcg PO DAILY [facility] Last Admin: 09/29/19 10:43 Dose: Not Given Diltiazem HCl (Cardizem Cd) 180 mg PO Q24H [facility] Last Admin: 09/28/19 19:18 Dose: 180 mg Ferrous Sulfate (Ferrous Sulfate) 324 mg PO Q48H [facility] Last Admin: 09/27/19 16:00 Dose: 324 mg Diltiazem HCl 125 mg/ Sodium (Chloride) 125 mls @ 5 mls/hr IV TITRATE [facility]; Protocol Last Titration: 09/28/19 15:12 Dose: 15 mg/hr, 15 mls/hr Lidocaine (Aspercreme 4%) 1 each TOP DAILY PRN PRN Reason: Pain Last Admin: 09/25/19 11:18 Dose: 1 each Miscellaneous Information (Remove Patch) 0 ea TRDERM Q24H PRN PRN Reason: PAIN PATCH REMOVAL Ondansetron HCl (Zofran Odt) 4 mg PO Q6H PRN PRN Reason: nausea, able to take PO Ondansetron HCl (Zofran) 4 mg IV Q6H PRN PRN Reason: Nausea/Vomiting Pantoprazole Sodium (Protonix) 40 mg PO ACBREAKFAST [facility] Last Admin: 09/29/19 05:49 Dose: 40 mg Rivaroxaban (Xarelto) 20 mg PO WITHDINNER [facility] Last Admin: 09/28/19 19:18 Dose: 20 mg Senna/Docusate Sodium (Senna Plus) 1 tab PO BID PRN PRN Reason: Constipation Last Admin: 09/29/19 08:24 Dose: 1 tab Simvastatin (Zocor) 10 mg PO DAILY [facility] Last Admin: 09/29/19 08:24 Dose: 10 mg Sodium Chloride (Saline Flush) 10 ml FLUSH ASDIRECTED PRN PRN Reason: Keep Vein Open Last Admin: 09/24/19 11:31 Dose: 10 ml Sulindac (Clinoril) 150 mg PO BID@0800,1700 [facility] Last Admin: 09/29/19 08:21 Dose: 150 mg Tamsulosin HCl (Flomax) 0.4 mg PO DAILY [facility] Last Admin: 09/29/19 08:24 Dose: 0.4 mg Discontinued Medications Amiodarone HCl (Cordarone) 300 mg PO BID [facility] Last Admin: 09/27/19 08:09 Dose: 300 mg Amiodarone HCl (Cordarone) 100 mg PO ONETIME ONE Stop: 09/27/19 10:21 Last Admin: 09/27/19 10:29 Dose: 100 mg Amiodarone HCl (Cordarone) 400 mg PO BID [facility] Last Admin: 09/28/19 13:39 Dose: Not Given Digoxin (Lanoxin) 250 mcg IVPUSH Q6H [facility] Stop: 09/28/19 09:31 Last Admin: 09/28/19 03:02 Dose: 250 mcg Diltiazem HCl (Cardizem) 10 mg IVPUSH ONETIME ONE Stop: 09/24/19 12:13 Last Admin: 09/24/19 12:22 Dose: 10 mg Diltiazem HCl (Cardizem) 25 mg IVPUSH NOW [facility] Stop: 09/24/19 14:18 Last Admin: 09/24/19 14:47 Dose: 25 mg Diltiazem HCl (Cardizem Cd) 300 mg PO DAILY [facility] Last Admin: 09/26/19 09:00 Dose: 300 mg Diltiazem HCl (Cardizem) 25.7 mg IVPUSH ONETIME ONE Stop: 09/26/19 02:51 Last Admin: 09/26/19 03:08 Dose: 25.7 mg Diltiazem HCl (Cardizem) 25.7 mg IVPUSH ONETIME ONE Stop: 09/26/19 05:14 Last Admin: 09/26/19 05:22 Dose: 25.7 mg Diltiazem HCl (Cardizem) 10 mg IVPUSH ONETIME ONE Stop: 09/28/19 08:57 Last Admin: 09/28/19 09:11 Dose: 10 mg Hydromorphone HCl (Dilaudid) 0.5 mg IVPUSH ONETIME ONE Stop: 09/24/19 12:03 Last Admin: 09/24/19 12:08 Dose: 0.5 mg Diltiazem HCl 125 mg/ Sodium (Chloride) 125 mls @ 10 mls/hr IV TITRATE [facility]; Protocol Last Titration: 09/24/19 20:07 Dose: 0 mg/hr, 0 mls/hr Amiodarone HCl/Dextrose (Nexterone In Dextrose 150 Mg/100 Ml) 100 mls @ 600 mls /hr IV .BOLUS [facility]; Protocol Stop: 09/26/19 09:58 Last Admin: 09/26/19 10:00 Dose: 600 mls/hr Amiodarone HCl/Dextrose (Nexterone In Dextrose 360 Mg/200 Ml) 360 mg in 200 mls @ 33.333 mls/hr IV ASDIRECTED [facility]; Protocol Last Admin: 09/27/19 00:04 Dose: 18.7 mls/hr Lorazepam (Ativan) 0.5 mg IVPUSH ONETIME ONE Stop: 09/26/19 09:42 Last Admin: 09/26/19 09:47 Dose: 0.5 mg Metoprolol Tartrate (Lopressor) 25 mg PO Q12H [facility] Last Admin: 09/28/19 03:05 Dose: 25 mg Metoprolol Tartrate (Lopressor) 5 mg IVPUSH ONETIME ONE Stop: 09/27/19 16:31 Last Admin: 09/27/19 16:47 Dose: 5 mg Metoprolol Tartrate (Lopressor) 25 mg PO Q12H [facility] Last Admin: 09/29/19 06:45 Dose: 25 mg Morphine Sulfate (Morphine) 2 mg IVPUSH Q4H PRN PRN Reason: Pain (severe 7-10) Stop: 09/25/19 14:22 Last Admin: 09/24/19 19:46 Dose: 2 mg Morphine Sulfate (Morphine) 1 mg IVPUSH ONETIME ONE Stop: 09/26/19 05:14 Last Admin: 09/26/19 05:23 Dose: 1 mg Pantoprazole Sodium (Protonix Iv) 40 mg IVPUSH ONETIME ONE Stop: 09/28/19 09:31 Last Admin: 09/28/19 11:12 Dose: 40 mg Prednisone (Prednisone) 20 mg PO ONETIME ONE Stop: 09/24/19 13:11 Last Admin: 09/24/19 13:58 Dose: 20 mg Rivaroxaban (Xarelto) 15 mg PO BID [facility] Last Admin: 09/26/19 20:29 Dose: 15 [facility] Admin: 09/24/19 17:05 Dose: 150 mg - Exam Quality Assessment: No: Supplemental Oxygen General: Alert, Oriented HEENT: Pupils Equal Neck: Supple Lungs: Clear to Auscultation, Normal Respiratory Effort Cardiovascular: Irregular Rhythm, Bradycardia GI/Abdominal Exam: Normal Bowel Sounds, Soft, Non-Tender, No Distention Extremities: Normal Inspection, No Pedal Edema Skin: Warm, Dry, Intact Neurological: No New Focal Deficit Psy/Mental Status: Alert, Normal Affect, Normal Mood - Problem List Review Problem List Initiated/Reviewed/Updated: Yes - My Orders Last 24 Hours: My Active Orders 09/28/19 14:00 Digoxin [Lanoxin] 125 mcg PO DAILY 09/28/19 18:00 Diltiazem [Cardizem CD] 180 mg PO Q24H 09/28/19 21:00 Amiodarone [Cordarone] 400 mg PO BID 09/29/19 06:00 Pantoprazole [ProTONIX] 40 mg PO ACBREAKFAST 09/30/19 05:11 CBC WITH AUTO DIFF [HEME] AM CMP [COMPREHENSIVE METABOLIC PN,CMP] [CHEM] AM MAGNESIUM [CHEM] AM 10/01/19 05:11 CBC WITH AUTO DIFF [HEME] AM CMP [COMPREHENSIVE METABOLIC PN,CMP] [CHEM] AM MAGNESIUM [CHEM] AM 10/02/19 05:11 CBC WITH AUTO DIFF [HEME] AM CMP [COMPREHENSIVE METABOLIC PN,CMP] [CHEM] AM MAGNESIUM [CHEM] AM - Plan Plan:: Paroxysmal atrial fibrillation with RVR- on Xarelto Previous episode in February responded to Cardizem Rate significantly decreased on Cardizem CD 180 mg, metoprolol tartrate 25 mg twice daily, digoxin 125 mcg daily, and amiodarone loading Normal TSH Echocardiogram with grade 1 DD PLAN -Continue loading amiodarone 400mg BID - Digoxin held this morning secondary to rates in the 40s - Metoprolol 25mg BID hold tonight and follow rate -Continue Cardizem CD 180 mg daily - Spoke with on-call master fisher at [facility] in [place] who recommended switching over to Cardizem 24-hour 180 mg twice daily, stopping the drip, and giving metoprolol approximately 1 hour later. - Continue Xarelto Polyarticular pain + ESR raised Currently in no pain No trauma No obvious deformities Attempted ibuprofen at home with minimal improvement Unlikely to be autoimmune condition but will order w/u to r/o Question if patient going down water slide [place] the local rec [place] because some mild trauma that is self-limiting. PLAN - TATIANA -negative - Aspercreme as needed - Discontinue morphine, only Tylenol #3 -Also receiving sulindac, but should not be on this long-term. - PT/OT Iron deficiency anemia No signs of blood loss No previous screening No red flags (weight loss, fatigue, early satiety) PLAN - Iron replacement q48h Pancreatic mass Equivocal history of diagnosis in 2015 Son states it it cancer, however this does not match the natural history of pancreatic cancer PLAN - Request records PROPHYLAXIS DVT- SCDs GI-Protonix 40 mg daily secondary to Xarelto and sulindac increasing risk for upper GI bleed CODE STATUS: FULL CODE DISPOSITION: Patient admitted on Diltiazem drip with relapse in RVR, given Amiodarone load, back in ICU, started on metoprolol and digoxin today. PT recommending home with home health. Discharge tomorrow home.
[2019-09-29] MEDS: Rivaroxaban 10 MG Tab PO SCH (16:19)
[2019-09-29] MEDS: Ferrous Sulfate 324 MG Tab.EC PO SCH ×2 (16:30→16:33)
[2019-09-29] MEDS: Diltiazem 180 MG Cap.CD PO SCH (17:45)
[2019-09-30] MEDS: Pantoprazole 40 MG Tab.CR PO SCH (05:50)
[2019-09-30] MEDS: Amiodarone 200 MG Tab PO SCH (07:59)
[2019-09-30] MEDS: Tamsulosin 0.4 MG Cap.ER PO SCH (08:00)
[2019-09-30] MEDS: Simvastatin 10 MG Tab PO SCH (08:00)
[2019-09-30] MEDS: Digoxin 125 MCG Tab PO SCH (08:03)
--- NOTE | 2019-09-30 09:17 | PCM.DCSUM1 ---
Discharge Summary - Hospital Course HPI Initial Comments: Lizzette lal a88 year old male who comes to the ED complaining of pain. As per patient pain started a couple of weeks ago on his neck and has progressively worsened and involved head and knees. He went to the walk-in clinic and was given ibuprofen. The pain has steadily worsened to the point he is unable to sleep for which he decided to come in for further evaluation. Once in the ED he was found to have a HR > 140 for which he was given Diltiazem for rate control and started on a Diltiazem drip. Diagnosis: Stroke: No - Discharge Data Discharge Date: 09/30/19 Discharge Disposition: Home, Self-Care 01 Condition: Good - Referral to Home Health Primary Care Physician: Parvin Singh MD - Patient Summary/Data Consults: Consultations 09/24/19 14:18 OT Evaluation and Treatment [CONS] Routine 09/28/19 08:47 Consult to Physical Therapy [PT Evaluation and Treatment] [CONS] Routine Hospital Course: Patient was admitted to ICU and started on diltiazem drip. On day 2 drip was stopped secondary to rate control and patient was transferred to the floor. Unfortunately, patient had no episode of atrial for ablation with RVR and was brought back to the unit and loaded with amiodarone and digoxin. Patient was also started on metoprolol. He continued to have heart rate in the 130s and 40s and a diltiazem drip was restarted. When rate became controlled he was started back on diltiazem 24-hour 180 mg p.o. Day before discharge he did have episodes of bradycardia into the 40s, therefore metoprolol was stopped. On day of discharge heart rate was between 60 and 80 and blood pressure was 130/80. Patient was doing well and had no chest pain, shortness of breath, or nausea or vomiting. Patient's neck pain improved significantly on sulindac and [place]. Unfortunately when patient was discharged the pharmacy did not have any sulindac , therefore indomethacin 25 mg twice daily for 5 tablets was given. Patient was also started on Protonix secondary to concern about GI bleeding. Patient was also discharged on Xarelto for stroke prophylaxis. Fortunately, patient does have an appointment on Tuesday with cardiology. I would not recommend that the patient continue on nonsteroidal anti-inflammatory for long-term. - Patient Instructions Diet: Heart Healthy Diet Driving: May Drive Today Showering/Bathing: May Shower Other/Special Instructions: Follow up with cardiology on Tuesday and with your PCP later next week. - Discharge Plan *PRESCRIPTION DRUG MONITORING PROGRAM REVIEWED*: No *COPY OF PRESCRIPTION DRUG MONITORING REPORT IN PATIENT MAGGIE: No Prescriptions/Med Rec: Acetaminophen/HYDROcodone [[place] 325-10 MG] 1 tab PO Q6H PRN #5 tablet PRN Reason: Pain (Moderate 4-6) Amiodarone [Cordarone] 200 mg PO BID #60 tablet Digoxin [Lanoxin] 125 mcg PO DAILY #30 tablet Diltiazem HCl [Diltiazem ER] 180 mg PO DAILY #30 capsule.er Indomethacin 25 mg PO BID #5 capsule Pantoprazole Sodium 40 mg PO QAM #30 tablet. Rivaroxaban [Xarelto] 20 mg PO DAILY #30 tablet Sulindac [Clinoril] 150 mg PO BID@0800,1700 #10 tablet Home Medications: Home Meds Aspirin [Ecotrin EC] 81 mg PO DAILY 05/15/15 [History] Tamsulosin [Flomax] 0.4 mg PO DAILY 05/15/15 [History] atorvaSTATin [Lipitor] 10 mg PO DAILY 05/15/15 [History] Nitroglycerin [Nitrostat] 0.4 mg SL ONETIME PRN 09/24/19 [History] Acetaminophen/HYDROcodone [[place] 325-10 MG] 1 tab PO Q6H PRN #5 tablet 09/30/19 [Rx] Amiodarone [Cordarone] 200 mg PO BID #60 tablet 09/30/19 [Rx] Digoxin [Lanoxin] 125 mcg PO DAILY #30 tablet 09/30/19 [Rx] Diltiazem HCl [Diltiazem ER] 180 mg PO DAILY #30 capsule.er 09/30/19 [Rx] Indomethacin 25 mg PO BID #5 capsule 09/30/19 [Rx] Pantoprazole Sodium 40 mg PO QAM #30 tablet. 09/30/19 [Rx] Rivaroxaban [Xarelto] 20 mg PO DAILY #30 tablet 09/30/19 [Rx] Rivaroxaban [Xarelto] 20 mg PO WITHDINNER #0 tablet 09/30/19 [Rx] Sulindac [Clinor[place]] 150 mg PO BID@0800,1700 #10 tablet 09/30/19 [Rx] Patient Handouts: Rivaroxaban oral tablets, Atrial Fibrillation Referrals: PCP,Not In Area [Ordering Only Provider] - - Discharge Summary/Plan Comment DC Time >30 min.: Yes Discharge Summary/Plan Comment: Discharge home. Follow-up with cardiology on Tuesday. Continue amiodarone 200 mg twice daily, diltiazem 24-hour 180 mg daily, digoxin 125 mcg daily until seen by cardiology. Follow-up with primary care provider within the next 5 to 7 days. - General Info Date of Service: 09/30/19 Admission Dx/Problem (Free Text: A. fib with rapid ventricular response Subjective Update: Check is doing well without complaints. He is anxious to get home. Functional Status: Reports: Pain Controlled - Review of Systems General: Reports: No Symptoms HEENT: Reports: No Symptoms Pulmonary: Reports: No Symptoms Cardiovascular: Reports: No Symptoms Gastrointestinal: Reports: No Symptoms - Patient Data Vitals - Most Recent: Last Vital Signs Temp 98.1 F 09/30/19 08:00 Pulse 74 09/30/19 08:03 Resp 16 09/30/19 08:00 BP 131/67 09/30/19 08:00 Pulse Ox 97 09/30/19 08:00 Weight - Most Recent: 165 lb 12.8 oz I&O - Last 24 hours: Intake & Output 09/29/19 09/30/19 09/30/19 22:59 06:59 14:59 Intake Total 620 800 Balance 620 800 Lab Results - Last 24 hrs: Laboratory Results - last 24 hr 09/30/19 09/30/19 Range/Units 05:15 05:15 WBC 7.29 (4.23-9.07) K/mm3 RBC 3.73 L (4.63-6.08) M/mm3 Hgb 11.1 L (13.7-17.5) gm/dl Hct 32.6 L (40.1-51.0) % MCV 87.4 (79.0-92.2) fl MCH 29.8 (25.7-32.2) pg MCHC 34.0 (32.2-35.5) g/dl RDW Std Deviation 40.1 (35.1-43.9) fL Plt Count 299 (163-337) K/mm3 MPV 10.8 (9.4-12.3) fl Neut % (Auto) 71.1 H (34.0-67.9) % Lymph % (Auto) 11.9 L (21.8-53.1) % [place] % (Auto) 13.7 H (5.3-12.2) % Eos % (Auto) 2.9 (0.8-7.0) Baso % (Auto) 0.1 (0.1-1.2) % Neut # (Auto) 5.18 (1.78-5.38) K/mm3 Lymph # (Auto) 0.87 L (1.32-3.57) K/mm3 [place] # (Auto) 1.00 H (0.30-0.82) K/mm3 Eos # (Auto) 0.21 (0.04-0.54) K/mm3 Baso # (Auto) 0.01 (0.01-0.08) K/mm3 Sodium 135 L (136-145) mEq/L Potassium 4.3 (3.5-5.1) mEq/L Chloride 101 (98-107) mEq/L Carbon Dioxide 25 (21-32) mEq/L Anion Gap 13.3 (5-15) BUN 12 (7-18) mg/dL Creatinine 0.8 (0.7-1.3) mg/dL Est Cr Clr Drug Dosing 70.51 mL/min Estimated GFR (MDRD) > 60 (>60) mL/min BUN/Creatinine Ratio 15.0 (14-18) Glucose 98 (83-115) mg/dL Calcium 8.7 (8.5-10.1) mg/dL Magnesium 2.1 (1.8-2.4) mg/dl Total Bilirubin 0.6 (0.2-1.0) mg/dL AST 21 (15-37) U/L ALT 44 (16-63) U/L Alkaline Phosphatase 67 (46-116) U/L Total Protein 6.2 L (6.4-8.2) g/dl Albumin 2.2 L (3.4-5.0) g/dl Globulin 4.0 gm/dL Albumin/Globulin Ratio 0.6 L (1-2) Med Orders - Current: Current Medications Acetaminophen (Tylenol) 650 mg PO Q4H PRN PRN Reason: Pain Hydrocodone Bitart/Acetaminophen ([place] 325-10 Mg) 1 tab PO Q6H PRN PRN Reason: Pain (moderate 4-6) Last Admin: 09/29/19 20:06 Dose: 1 tab Digoxin (Lanoxin) 125 mcg PO DAILY [facility] Last Admin: 09/30/19 08:03 Dose: 125 mcg Diltiazem HCl (Cardizem Cd) 180 mg PO Q24H [facility] Last Admin: 09/29/19 17:45 Dose: 180 mg Ferrous Sulfate (Ferrous Sulfate) 324 mg PO Q48H [facility] Last Admin: 09/29/19 16:33 Dose: Not Given Diltiazem HCl 125 mg/ Sodium (Chloride) 125 mls @ 5 mls/hr IV TITRATE [facility]; Protocol Last Titration: 09/28/19 15:12 Dose: 15 mg/hr, 15 mls/hr Miscellaneous Information (Remove Patch) 0 ea TRDERM Q24H PRN PRN Reason: PAIN PATCH REMOVAL Ondansetron HCl (Zofran Odt) 4 mg PO Q6H PRN PRN Reason: nausea, able to take PO Ondansetron HCl (Zofran) 4 mg IV Q6H PRN PRN Reason: Nausea/Vomiting Pantoprazole Sodium (Protonix) 40 mg PO ACBREAKFAST [facility] Last Admin: 09/30/19 05:50 Dose: 40 mg Rivaroxaban (Xarelto) 20 mg PO WITHDINNER [facility] Last Admin: 09/29/19 16:19 Dose: 20 mg Senna/Docusate Sodium (Senna Plus) 1 tab PO BID PRN PRN Reason: Constipation Last Admin: 09/29/19 08:24 Dose: 1 tab Simvastatin (Zocor) 10 mg PO DAILY [facility] Last Admin: 09/30/19 08:00 Dose: 10 mg Sodium Chloride (Saline Flush) 10 ml FLUSH ASDIRECTED PRN PRN Reason: Keep Vein Open Last Admin: 09/24/19 11:31 Dose: 10 ml Sulindac (Clinoril) 150 mg PO BID@0800,1700 [facility] Last Admin: 09/30/19 07:59 Dose: 150 mg Tamsulosin HCl (Flomax) 0.4 mg PO DAILY [facility] Last Admin: 09/30/19 08:00 Dose: 0.4 mg Discontinued Medications Amiodarone HCl (Cordarone) 300 mg PO BID [facility] Last Admin: 09/27/19 08:09 Dose: 300 mg Amiodarone HCl (Cordarone) 100 mg PO ONETIME ONE Stop: 09/27/19 10:21 Last Admin: 09/27/19 10:29 Dose: 100 mg Amiodarone HCl (Cordarone) 400 mg PO BID [facility] Last Admin: 09/28/19 13:39 Dose: Not Given Amiodarone HCl (Cordarone) 400 mg PO BID [facility] Stop: 09/30/19 09:01 Last Admin: 09/30/19 07:59 Dose: 400 mg Digoxin (Lanoxin) 250 mcg IVPUSH Q6H [facility] Stop: 09/28/19 09:31 Last Admin: 09/28/19 03:02 Dose: 250 mcg Diltiazem HCl (Cardizem) 10 mg IVPUSH ONETIME ONE Stop: 09/24/19 12:13 Last Admin: 09/24/19 12:22 Dose: 10 mg Diltiazem HCl (Cardizem) 25 mg IVPUSH NOW [facility] Stop: 09/24/19 14:18 Last Admin: 09/24/19 14:47 Dose: 25 mg Diltiazem HCl (Cardizem Cd) 300 mg PO DAILY [facility] Last Admin: 09/26/19 09:00 Dose: 300 mg Diltiazem HCl (Cardizem) 25.7 mg IVPUSH ONETIME ONE Stop: 09/26/19 02:51 Last Admin: 09/26/19 03:08 Dose: 25.7 mg Diltiazem HCl (Cardizem) 25.7 mg IVPUSH ONETIME ONE Stop: 09/26/19 05:14 Last Admin: 09/26/19 05:22 Dose: 25.7 mg Diltiazem HCl (Cardizem) 10 mg IVPUSH ONETIME ONE Stop: 09/28/19 08:57 Last Admin: 09/28/19 09:11 Dose: 10 mg Hydromorphone HCl (Dilaudid) 0.5 mg IVPUSH ONETIME ONE Stop: 09/24/19 12:03 Last Admin: 09/24/19 12:08 Dose: 0.5 mg Diltiazem HCl 125 mg/ Sodium (Chloride) 125 mls @ 10 mls/hr IV TITRATE [facility]; Protocol Last Titration: 09/24/19 20:07 Dose: 0 mg/hr, 0 mls/hr Amiodarone HCl/Dextrose (Nexterone In Dextrose 150 Mg/100 Ml) 100 mls @ 600 mls /hr IV .BOLUS ONE; Protocol Stop: 09/26/19 09:58 Last Admin: 09/26/19 10:00 Dose: 600 mls/hr Amiodarone HCl/Dextrose (Nexterone In Dextrose 360 Mg/200 Ml) 360 mg in 200 mls @ 33.333 mls/hr IV ASDIRECTED [facility]; Protocol Last Admin: 09/27/19 00:04 Dose: 18.7 mls/hr Lidocaine (Aspercreme 4%) 1 each TOP DAILY PRN PRN Reason: Pain Last Admin: 09/25/19 11:18 Dose: 1 each Lorazepam (Ativan) 0.5 mg IVPUSH ONETIME ONE Stop: 09/26/19 09:42 Last Admin: 09/26/19 09:47 Dose: 0.5 mg Metoprolol Tartrate (Lopressor) 25 mg PO Q12H [facility] Last Admin: 09/28/19 03:05 Dose: 25 mg Metoprolol Tartrate (Lopressor) 5 mg IVPUSH ONETIME ONE Stop: 09/27/19 16:31 Last Admin: 09/27/19 16:47 Dose: 5 mg Metoprolol Tartrate (Lopressor) 25 mg PO Q12H [facility] Last Admin: 09/29/19 06:45 Dose: 25 mg Morphine Sulfate (Morphine) 2 mg IVPUSH Q4H PRN PRN Reason: Pain (severe 7-10) Stop: 09/25/19 14:22 Last Admin: 09/24/19 19:46 Dose: 2 mg Morphine Sulfate (Morphine) 1 mg IVPUSH ONETIME ONE Stop: 09/26/19 05:14 Last Admin: 09/26/19 05:23 Dose: 1 mg Pantoprazole Sodium (Protonix Iv) 40 mg IVPUSH ONETIME ONE Stop: 09/28/19 09:31 Last Admin: 09/28/19 11:12 Dose: 40 mg Prednisone (Prednisone) 20 mg PO ONETIME ONE Stop: 09/24/19 13:11 Last Admin: 09/24/19 13:58 Dose: 20 mg Rivaroxaban (Xarelto) 15 mg PO BID [facility] Last Admin: 09/26/19 20:29 Dose: 15 mg Sulindac (Clinoril) 150 mg PO BIDMEALS [facility] Last Admin: 09/24/19 17:05 Dose: 150 mg - Exam General: Reports: Alert, Oriented HEENT: Reports: Pupils Equal Neck: Reports: Supple Lungs: Reports: Clear to Auscultation, Normal Respiratory Effort Cardiovascular: Reports: Regular Rate, Regular Rhythm GI/Abdominal Exam: Normal Bowel Sounds, Soft, Non-Tender, No Organomegaly, No Distention, No Abnormal Bruit, No Mass, Pelvis Stable Extremities: Normal Inspection, No Pedal Edema Skin: Reports: Warm Neurological: Reports: No New Focal Deficit Psy/Mental Status: Reports: Alert, Normal Affect, Normal Mood
[2019-09-30 10:39] VITALS: BP 139/46; PULSE 63
== END 2019-09-30 10:28 | disposition home or self-care (01) | DRG 309 ==
LOC: JD.ED 10:03 → JD.ICU 14:18 → JD.MS 09-25 17:51 → JD.ICU 09-26 09:24
PROVIDERS: ADMIT Internal Medicine; ATTEND Family Medicine
DX: I48.0 Paroxysmal atrial fibrillation (principal); E87.1 Hypo-osmolality and hyponatremia; M35.3 Polymyalgia rheumatica; F41.9 Anxiety disorder, unspecified; H54.7 Unspecified visual loss; H91.90 Unspecified hearing loss, unspecified ear; E78.00 Pure hypercholesterolemia, unspecified; I10 Essential (primary) hypertension; C25.9 Malignant neoplasm of pancreas, unspecified; I25.2 Old myocardial infarction; K86.9 Disease of pancreas, unspecified; E87.8 Other disorders of electrolyte and fluid balance, not elsewhere classified; R70.0 Elevated erythrocyte sedimentation rate; M25.561 Pain in right knee; D50.9 Iron deficiency anemia, unspecified; M25.562 Pain in left knee; Z79.82 Long term (current) use of aspirin; Z79.899 Other long term (current) drug therapy; Z88.8 Allergy status to other drugs, medicaments and biological substances
CPT/HCPCS: 36415; 70450; 80053; 82550; 82607; 82746; 83540; 83690; 84443; 84466; 84484; 85025; 85045; 85652; 86038; 86140; 86430; 93005; 99285; A9270; J1170; J3490 ×2; J7030; 80048; 80162; 83735; 84100; 93010; 93306; 97161-GP; 97165-GO; 97530-GO; 99284; C9113; J0282; J1160; J2060; J2270; J7050

== ENCOUNTER 2019-10-03 13:54 | Emergency (ER) | payer MEDICARE, BC ==
--- NOTE | 2019-10-03 14:04 | EDM.PDOC ---
ED HPI GENERAL MEDICAL PROBLEM - General Chief Complaint: General Stated Complaint: HIGH HEART RATE/MEDICATION REFILL Time Seen by Provider: 10/03/19 14:04 - History of Present Illness INITIAL COMMENTS - FREE TEXT/NARRATIVE: 88-year-old male presents emergency room requesting a refill of his indomethacin. The patient was started on indomethacin as an inpatient here however the patient is taking Xarelto for atrial fibrillation. I will not refill his indomethacin the patient complains mostly of knee pain and joint pain. He denies any breathing difficulty shortness of breath or palpitations at this time the patient saw his manager installation yesterday who also advised that he should not be on his indomethacin. Patient last took indomethacin 3 AM this morning because he couldn't sleep. Headache Pain Score (Numeric/FACES): 5 - Related Data Allergies Allergy/AdvReac Type Severity Reaction Status Date / Time cefdinir [From Omnicef] Allergy Cannot Verified 10/03/19 15:00 Remember propoxyphene HCl AdvReac Seizure Verified 10/03/19 15:00 [From Darvon] Home Meds: Home Meds Aspirin [Ecotrin EC] 81 mg PO DAILY 05/15/15 [History] Tamsulosin [Flomax] 0.4 mg PO DAILY 05/15/15 [History] atorvaSTATin [Lipitor] 10 mg PO DAILY 05/15/15 [History] Nitroglycerin [Nitrostat] 0.4 mg SL ONETIME PRN 09/24/19 [History] Acetaminophen/HYDROcodone [[place] 325-10 MG] 1 tab PO Q6H PRN #5 tablet 09/30/19 [Rx] Amiodarone [Cordarone] 200 mg PO BID #60 tablet 09/30/19 [Rx] Digoxin [Lanoxin] 125 mcg PO DAILY #30 tablet 09/30/19 [Rx] Diltiazem HCl [Diltiazem ER] 180 mg PO DAILY #30 capsule.er 09/30/19 [Rx] Indomethacin 25 mg PO BID #5 capsule 09/30/19 [Rx] Pantoprazole Sodium 40 mg PO QAM #30 tablet. 09/30/19 [Rx] Rivaroxaban [Xarelto] 20 mg PO DAILY #30 tablet 09/30/19 [Rx] Rivaroxaban [Xarelto] 20 mg PO WITHDINNER #0 tablet 09/30/19 [Rx] Sulindac [Clinoril] 150 mg PO BID@0800,1700 #10 tablet 09/30/19 [Rx] Past Medical History HEENT History: Reports: Hard of Hearing, Impaired Vision Other HEENT History: wears glasses. wears hearing aids Cardiovascular History: Reports: High Cholesterol, Hypertension, [place] Neurological History: Reports: Head Trauma Oncologic (Cancer) History: Reports: Pancreatic, Other (See Below) Other Oncologic History: pancreatic cancerous tumor - Past Surgical History GI Surgical History: Reports: Colonoscopy Social & Family History - Family History Family Medical History: Noncontributory - Caffeine Use Caffeine Use: Reports: None ED ROS GENERAL - Review of Systems Review Of Systems: See Below Constitutional: Reports: No Symptoms Respiratory: Reports: No Symptoms Cardiovascular: Reports: No Symptoms GI/Abdominal: Reports: No Symptoms ED EXAM, GENERAL - Physical Exam Exam: See Below Exam Limited By: No Limitations General Appearance: Alert, No Apparent Distress Head: Atraumatic, Normocephalic Neck: Normal Inspection, Supple, Non-Tender, Full Range of Motion Respiratory/Chest: No Respiratory Distress, Lungs Clear, Normal Breath Sounds Cardiovascular: Regular Rate, Rhythm, No Edema, No Murmur GI/Abdominal: Normal Bowel Sounds, Soft, Non-Tender Course - Vital Signs Last Recorded V/S: Last Vital Signs Temp 36.6 C 10/03/19 14:56 Pulse 60 10/03/19 14:56 Resp 16 10/03/19 14:56 BP 139/76 10/03/19 14:56 Pulse Ox 100 10/03/19 14:56 - Orders/Labs/Meds Meds: Medications Discontinued Medications Generic Name Dose Route Start Last Admin Trade Name Richie PRN Reason Stop Dose Admin Acetaminophen 975 mg 10/03/19 15:23 10/03/19 15:33 Tylenol PO 10/03/19 15:24 975 mg NOW ONE Administration - Re-Assessments/Exams Free Text/Narrative Re-Assessment/Exam: 10/03/19 15:44 I discussed the situation with the patient. And I will start him on Tylenol 650 mg 4 times a day we'll give him a dose here in the emergency department. And he can grain picker the rest at the pharmacy or at a convenience store. Departure - Departure Time of Disposition: 15:45 Disposition: Home, Self-Care 01 Clinical Impression: Arthritis pain - Discharge Information Referrals: Parvin Singh MD [Primary Care Provider] - Forms: ED Department Discharge Additional Instructions: Return to the emergency room with any questions problems or worsening symptoms. Follow-up with your regular provider in one week to discuss how the Tylenol is working. Get some Tylenol regular strength this should be 325 mg per capsule or tablet. Take 2 4 times a day. Sepsis Event Note - Focused Exam Vital Signs: Vital Signs Temp Pulse Resp BP Pulse Ox 10/03/19 14:56 36.6 C 60 16 139/76 100 Date Exam was Performed: 10/03/19 Time Exam was Performed: 15:41
[2019-10-03 15:00] VITALS: BP 139/76; PULSE 60
[2019-10-03] MEDS ORDERED: Acetaminophen 325 MG Tab PO ONE (15:23)
== END 2019-10-03 16:15 | disposition home or self-care (01) ==
LOC: JD.ED 13:54
DX: M17.10 Unilateral primary osteoarthritis, unspecified knee (principal); I25.2 Old myocardial infarction; E78.00 Pure hypercholesterolemia, unspecified; Z79.01 Long term (current) use of anticoagulants; Z88.1 Allergy status to other antibiotic agents; Z79.82 Long term (current) use of aspirin; Z88.6 Allergy status to analgesic agent
CPT/HCPCS: 99283; A9270; 99282

== ENCOUNTER 2020-02-06 16:19 | Emergency (ER) | payer MEDICARE, BC ==
[2020-02-06 16:42] VITALS: BP 143/68; PULSE 74
--- NOTE | 2020-02-06 17:24 | EDM.PDOC ---
ED HPI GENERAL MEDICAL PROBLEM - General Chief Complaint: Gastrointestinal Problem Stated Complaint: BLOOD IN STOOL Time Seen by Provider: 02/06/20 16:31 Source of Information: Reports: Patient History Limitations: Reports: No Limitations - History of Present Illness INITIAL COMMENTS - FREE TEXT/NARRATIVE: The patient presents with blood in the stool. This has been going on for 3 days. He says it has been with stool. He has no fever, chills, cough, congestion, runny nose, abdominal pain, nausea or vomiting. He has no pain with bowel movements. He has no history of hemorrhoids. He is annoyed that he told anyone because they made him come here. Onset: Gradual Duration: Day(s): (3) Severity: Mild Improves with: Reports: None Worsens with: Reports: None Associated Symptoms: Reports: No Other Symptoms - Related Data Allergies Allergy/AdvReac Type Severity Reaction Status Date / Time cefdinir [From Omnicef] Allergy Cannot Verified 02/06/20 16:33 Remember propoxyphene HCl AdvReac Seizure Verified 02/06/20 16:33 [From Darvon] Home Meds: Home Meds Aspirin [Ecotrin EC] 81 mg PO DAILY 05/15/15 [History] Tamsulosin [Flomax] 0.4 mg PO DAILY 05/15/15 [History] atorvaSTATin [Lipitor] 10 mg PO DAILY 05/15/15 [History] Nitroglycerin [Nitrostat] 0.4 mg SL ONETIME PRN 09/24/19 [History] Acetaminophen/HYDROcodone [[place] 325-10 MG] 1 tab PO Q6H PRN #5 tablet 09/30/19 [Rx] Amiodarone [Cordarone] 200 mg PO BID #60 tablet 09/30/19 [Rx] Digoxin [Lanoxin] 125 mcg PO DAILY #30 tablet 09/30/19 [Rx] Diltiazem HCl [Diltiazem ER] 180 mg PO DAILY #30 capsule.er 09/30/19 [Rx] Indomethacin 25 mg PO BID #5 capsule 09/30/19 [Rx] Pantoprazole Sodium 40 mg PO QAM #30 tablet. 09/30/19 [Rx] Rivaroxaban [Xarelto] 20 mg PO DAILY #30 tablet 09/30/19 [Rx] Rivaroxaban [Xarelto] 20 mg PO WITHDINNER #0 tablet 09/30/19 [Rx] Sulindac [Clinoril] 150 mg PO BID@0800,1700 #10 tablet 09/30/19 [Rx] Past Medical History HEENT History: Reports: Hard of Hearing, Impaired Vision Other HEENT History: wears glasses. wears hearing aids Cardiovascular History: Reports: High Cholesterol, Hypertension, [place] Neurological History: Reports: Head Trauma Psychiatric History: Reports: Dementia Oncologic (Cancer) History: Reports: Pancreatic, Other (See Below) Other Oncologic History: pancreatic cancerous tumor - Past Surgical History GI Surgical History: Reports: Colonoscopy Social & Family History - Family History Family Medical History: Noncontributory - Tobacco Use Smoking Status *Q: Never Smoker Second Hand Smoke Exposure: No - Caffeine Use Caffeine Use: Reports: None - Recreational Drug Use Recreational Drug Use: No ED ROS GENERAL - Review of Systems Review Of Systems: See Below Constitutional: Reports: No Symptoms HEENT: Reports: No Symptoms Respiratory: Reports: No Symptoms Cardiovascular: Reports: No Symptoms Endocrine: Reports: No Symptoms GI/Abdominal: Reports: Bloody Stool. Denies: Abdominal Pain, Nausea, Vomiting : Reports: No Symptoms Musculoskeletal: Reports: No Symptoms ED EXAM, GI/ABD - Physical Exam Exam: See Below Exam Limited By: No Limitations General Appearance: Alert, No Apparent Distress Ears: Normal External Exam Nose: Normal Inspection Head: Atraumatic, Normocephalic Neck: Normal Inspection Respiratory/Chest: No Respiratory Distress, Lungs Clear, Normal Breath Sounds Cardiovascular: Regular Rate, Rhythm, No Edema, No Murmur GI/Abdominal Exam: Soft, Non-Tender, No Organomegaly, No Mass Rectal (Males) Exam: Heme + Stool Course - Vital Signs Last Recorded V/S: Last Vital Signs Temp 98.1 F 02/06/20 16:25 Pulse 74 02/06/20 16:25 Resp 20 02/06/20 16:25 BP 143/68 H 02/06/20 16:25 Pulse Ox 96 02/06/20 16:25 - Orders/Labs/Meds Labs: Laboratory Tests 02/06/20 02/06/20 Range/Units 17:10 17:10 WBC 6.04 (4.23-9.07) K/mm3 RBC 4.16 L (4.63-6.08) M/mm3 Hgb 12.8 L D (13.7-17.5) gm/dl Hct 37.2 L (40.1-51.0) % MCV 89.4 (79.0-92.2) fl MCH 30.8 (25.7-32.2) pg MCHC 34.4 (32.2-35.5) g/dl RDW Std Deviation 51.2 H (35.1-43.9) fL Plt Count 173 D (163-337) K/mm3 MPV 10.6 (9.4-12.3) fl Neut % (Auto) 60.4 (34.0-67.9) % Lymph % (Auto) 22.2 (21.8-53.1) % [place] % (Auto) 14.1 H (5.3-12.2) % Eos % (Auto) 2.3 (0.8-7.0) Baso % (Auto) 0.3 (0.1-1.2) % Neut # (Auto) 3.65 (1.78-5.38) K/mm3 Lymph # (Auto) 1.34 (1.32-3.57) K/mm3 [place] # (Auto) 0.85 H (0.30-0.82) K/mm3 Eos # (Auto) 0.14 (0.04-0.54) K/mm3 Baso # (Auto) 0.02 (0.01-0.08) K/mm3 Sodium 139 (136-145) mEq/L Potassium 4.6 (3.5-5.1) mEq/L Chloride 105 (98-107) mEq/L Carbon Dioxide 22 (21-32) mEq/L Anion Gap 16.6 H (5-15) BUN 24 H (7-18) mg/dL Creatinine 0.9 (0.7-1.3) mg/dL Est Cr Clr Drug Dosing 61.21 mL/min Estimated GFR (MDRD) > 60 (>60) mL/min BUN/Creatinine Ratio 26.7 H (14-18) Glucose 150 H (83-115) mg/dL Calcium 9.2 (8.5-10.1) mg/dL Total Bilirubin 0.4 (0.2-1.0) mg/dL AST 20 (15-37) U/L ALT 39 (16-63) U/L Alkaline Phosphatase 66 (46-116) U/L Total Protein 6.5 (6.4-8.2) g/dl Albumin 3.2 L (3.4-5.0) g/dl Globulin 3.3 gm/dL Albumin/Globulin Ratio 1.0 (1-2) Lipase 97 (73-393) U/L - Re-Assessments/Exams Free Text/Narrative Re-Assessment/Exam: 02/06/20 17:22 I did a rectal exam and it was weak positive. I ordered some labs. 02/06/20 18:05 His Hgb is actually better at 12.8 today. It has been 11 in the past. His glucose is 150. I will discharge him and have him see Dr Bowen. He may need a colonoscopy but not today. Departure - Departure Time of Disposition: 18:10 Disposition: Home, Self-Care 01 Condition: Good Clinical Impression: GI bleed Qualifiers: GI bleed type/associated pathology: unspecified gastrointestinal hemorrhage type Qualified Code(s): K92.2 - Gastrointestinal hemorrhage, unspecified - Discharge Information *PRESCRIPTION DRUG MONITORING PROGRAM REVIEWED*: Not Applicable *COPY OF PRESCRIPTION DRUG MONITORING REPORT IN PATIENT MAGGIE: Not Applicable Referrals: Grzegorz Bowen MD [Primary Care Provider] - 2 Days Forms: ED Department Discharge Additional Instructions: Keep taking your medications as prescribed. Please return if you are worse such as more bleeding. Follow up with Dr Bowen in 2 days. Sepsis Event Note - Evaluation Sepsis Screening Result: No Definite Risk - Focused Exam Vital Signs: Vital Signs Temp Pulse Resp BP Pulse Ox 02/06/20 16:25 98.1 F 74 20 143/68 H 96 Date Exam was Performed: 02/06/20 Time Exam was Performed: 18:05
== END 2020-02-06 16:38 | disposition home or self-care (01) ==
LOC: JD.ED 16:19
DX: K92.2 Gastrointestinal hemorrhage, unspecified (principal); I10 Essential (primary) hypertension; E78.00 Pure hypercholesterolemia, unspecified; I25.2 Old myocardial infarction; F03.90 Unspecified dementia, unspecified severity, without behavioral disturbance, psychotic disturbance, mood disturbance, and anxiety; Z88.8 Allergy status to other drugs, medicaments and biological substances; Z79.82 Long term (current) use of aspirin; Z79.899 Other long term (current) drug therapy; Z79.01 Long term (current) use of anticoagulants
CPT/HCPCS: 36415; 80053; 83690; 85025; 99283; 99284

== ENCOUNTER 2021-12-15 17:11 | Emergency (ER) | payer MEDICARE, BC ==
[2021-12-15] MEDS ORDERED: Sodium Chloride 0.9% 10 ML Syringe FLUSH PRN (18:08)
[2021-12-15] MEDS ORDERED: Sodium Chloride 0.9% 1,000 ML IV STA (20:05)
[2021-12-15] MEDS ORDERED: Iopamidol 612 MG/ML 50 ML SDV IVPUSH ONE (20:23)
[2021-12-15] MEDS ORDERED: Iopamidol 612 MG/ML 100 ML Bottle IVPUSH ONE (20:23)
[2021-12-15] MEDS ORDERED: Sodium Chloride 0.9% 10 ML Syringe FLUSH ONE (20:23)
[2021-12-15] MEDS ORDERED: Sodium Chloride 0.9% 100 ML IV SCH (20:30)
[2021-12-15 22:18] VITALS: BP 121/76; PULSE 86
== END 2021-12-15 22:15 | disposition other institution (70) ==
LOC: JD.ED 17:11
DX: K57.32 Diverticulitis of large intestine without perforation or abscess without bleeding (principal); I48.91 Unspecified atrial fibrillation; E78.00 Pure hypercholesterolemia, unspecified; I10 Essential (primary) hypertension; I25.2 Old myocardial infarction; D64.9 Anemia, unspecified; Z88.1 Allergy status to other antibiotic agents; Z88.8 Allergy status to other drugs, medicaments and biological substances; Z79.82 Long term (current) use of aspirin; Z79.01 Long term (current) use of anticoagulants; Z79.899 Other long term (current) drug therapy
CPT/HCPCS: 36415; 74177; 80053; 85025; 86850; 86900; 86901; 93005; 99285; J7030; Q9967

== ENCOUNTER 2022-09-04 16:12 | Emergency (ER) | payer MEDICARE, BC ==
[2022-09-04] MEDS ORDERED: Sodium Chloride 0.9% 10 ML Syringe FLUSH PRN (18:16)
[2022-09-04] MEDS ORDERED: Doxycycline Monohydrate 100 MG Cap PO ONE (19:43)
[2022-09-04 20:32] VITALS: BP 123/78; PULSE 87
== END 2022-09-04 20:22 | disposition home or self-care (01) ==
LOC: JD.ED 16:12
DX: J90 Pleural effusion, not elsewhere classified (principal); I48.91 Unspecified atrial fibrillation; E78.00 Pure hypercholesterolemia, unspecified; I10 Essential (primary) hypertension; I25.2 Old myocardial infarction; D64.9 Anemia, unspecified; Z87.891 Personal history of nicotine dependence; Z88.8 Allergy status to other drugs, medicaments and biological substances; Z79.82 Long term (current) use of aspirin; Z79.01 Long term (current) use of anticoagulants; Z79.899 Other long term (current) drug therapy
CPT/HCPCS: 36415; 71045; 71045-26; 80053; 83735; 83880; 84484; 85025; 85610; 85730; 93005; 99285; A9270-GY